=== PATIENT | male | born 1960 | race Caucasian/White ===

== ENCOUNTER 2025-07-08 10:44 | Inpatient (IN) ==
--- NOTE | 2025-07-08 11:53 | Emergency Department Note ---
History of Present Illness General Chief complaint: Unable to Void Stated complaint: NOT GO TO BATHROOM Time Seen by Provider: 07/08/25 11:16 History of Present Illness Patient is a 64-year-old male with past medical history significant for hypertension, and newly diagnosed metastatic cancer of unknown etiology, who presents to the emergency department for evaluation of constipation and decreased urinary output x 3 days. Patient has been following with pulmonology, heme-onc, and palliative medicine. Etiology of the cancer is unclear at this time. He had a liver biopsy on 06/26, with pathology pending. A bone marrow biopsy was inconclusive. He had a port placed recently. He has been dealing with abdominal pain for some time, which has prompted prior ED evaluations. He has been constipated since the bronchoscopy. He was on oxycodone IR 5 mg and was using about 2/day until he saw palliative care 10 days ago. He was switched to Percocet 7.5 mg tablets that he can use 4 times daily. He states he is only using them 2-3 times per day. He has been constipated since being on the narcotics, but was managing with laxatives at home. He states that his constipation got worse after his Thanksgiving dinner 3 days ago. He took Colace when he got home on and a few doses of milk of magnesia, without relief. Today, before coming to the ER, he drank an entire bottle of magnesium citrate, without relief. He reports generalized abdominal pain and bloating, but is not nauseous and he has not been vomiting. He has been eating fairly normally. He has been able to void, but it seems like it has been getting more difficult, he states his stream is decreased, and he does not feel like he is emptying his bladder completely. That has happened in the last couple of days as well. No fever or chills. He is scheduled to see Dr. Hernandez in 2 days. Home Medications Medication Instructions Recorded Confirmed Type aspirin 81 mg tablet,delayed 81 mg PO QAM 04/18/25 07/08/25 History release (Adult Low Dose Aspirin) albuterol sulfate 90 mcg/actuation 2 puff inhalation QID PRN 05/25/25 07/08/25 Rx aerosol inhaler (Ventolin HFA) Shortness Of Breath Or Wheezing #8.5 grams acetaminophen 500 mg tablet 500 mg PO Q6H PRN Pain 06/06/25 07/08/25 History metoprolol succinate 25 mg 25 mg PO QAM 06/06/25 07/08/25 History tablet,extended release 24 hr magnesium hydroxide 800 mg/5 mL 800 mg PO DAILY PRN Constipation 06/20/25 07/08/25 History oral suspension oxycodone-acetaminophen 7.5 mg-325 1 tab PO QID PRN severe cancer 06/28/25 07/08/25 Rx mg tablet (Percocet) pain 1 month #120 tabs Allergies Allergy/AdvReac Type Severity Reaction Status Date / Time No Known Allergies Allergy Mild Verified 06/26/25 08:58 Past Med/Surg History Problem List (Updated 07/08/25 @ 16:35 by George Grubbs) Acute lactic acidosis (Acute) Leukocytosis (Acute) Acute urinary retention (Acute) Constipation (Acute) Advanced care planning/counseling discussion Palliative care by specialist Cancer related pain Abdominal pain Multiple pulmonary nodules Metastases to the liver Abnormal ECG during exercise stress test CHAHAL (dyspnea on exertion) Lymphadenopathy Retroperitoneal lymphadenopathy Weight loss Night sweat Mediastinal adenopathy ESR raised reason for procedure 05/02/[address] lung nodules on CT Medical History Constipation using MOM prn Abdominal pain taking tylenol and oxycodone PRN for pain Mediastinal adenopathy Abnormal ECG during exercise stress test (04/11/25) stress echo at [facility] 04/11/25- seen by [facility] malin (05/18/25)- nuclear stress test ordered for 06/05/25- patient cancelled stress test CHAHAL (dyspnea on exertion) EBUS 05/02/25 - [facility] [place] Pulmonology (05/18/25) Metastases to the liver Exertional chest pain Present since winter -seen in [place] ED 04/11/25- stress ECHO 04/11/25 non diagnostic (MPHR 82%)- ST depressions in inferolateral EKG leads, post exercise ECHO Showed no definite ischemia; troponin negative Lymphadenopathy Left neck LN showing atypical lymphoid infiltrate (worrisome for Hodgkin lymphoma) Cough sometimes productive - EBUS 05/02/25 - [facility] [place] Pulmonology- states was given albuterol for this reason- denies diagnosis of asthma/copd Arthritis Multiple lung nodules on CT (05/02/25) endo brachial ultra sound procedure 05/02/25 - [facility] Pulmonology (unable to get tissue diagnosis with bronchoscopy per pulm records) Surgical History History of lung biopsy (05/02/25) endo brachial US- pt states "they are not sure yet what kind of cancer they found" Hx of removal of cyst (1981) sebaceous cyst removal from leg History of tonsillectomy as a child History of myringotomy as a child History of cervical spinal surgery (2008) Hardware present - slightly limited rom Social History Smoking Status: Never smoker Second Hand Exposure: No; Do You Dip or Chew Tobacco: No (quit chewing 3 years ago); Hx Alcohol Use: No Hx Substance Use: No Preferred Language: Czech Communication Ability: Effective Cardiovascular Operating Room Nurse Required: No Beliefs That Will Affect Care: None Current Living Situation: Alone Feels Safe at Home: Yes Assistive Devices: None Review of Systems A total of 10 systems reviewed and were otherwise negative Physical Exam Vital Signs Vital Signs - 24 hr 07/08/25 10:51 07/08/25 13:30 07/08/25 15:31 Temperature 36.6 C Temperature Source Temporal Artery Scan Pulse Rate 111 H Pulse Rate [Finger] 91 H 88 Respiratory Rate 22 20 20 Respiratory Depth Normal Blood Pressure 131/82 Blood Pressure [Right Arm] 127/80 132/83 Blood Pressure Mean 98 Blood Pressure Mean [Right Arm] 95 99 Pulse Oximetry 97 92 97 Oxygen Delivery Method Room Air Room Air Room Air Sepsis Recent Fever Within 48 Hours No Sepsis New/Unexplained Change in Mental Status No Sepsis Action Taken by Nursing No Action Required CONSTITUTIONAL: Well-appearing 64-year-old male who is awake and alert and laying on the gurney. EYES: Pupils equal, round, reactive to light and accommodation. EOMs intact without nystagmus. Sclera are anicteric. ENT: Tympanic membranes intact, with normal landmarks. External canals are clear. Oral and nasopharynx are clear. Mucous membranes are moist, no lesions, tongue and gums appear normal. CARDIOVASCULAR: Regular rate and rhythm. Peripheral pulses easy to palpable. Well healing port incisions on the right upper chest. RESPIRATORY: Breath sounds equal and clear to auscultation. GI: Bowel sounds are present. Abdomen is moderately distended, soft, nontender to percussion, but diffusely tender to palpation throughout, primarily across the lower abdomen on the left lower quadrant. No guarding or rebound. MUSCULOSKELETAL: Full range of motion of extremities x 4 with good strength. No cyanosis, edema, joint tenderness or swelling. No deformity. INTEGUMENTARY: No lesions or rash, normal skin turgor. NEUROLOGICAL: Alert, oriented, and cooperative. Course Course The patient was seen and assessed as above. External medical records are reviewed, including recent heme-onc and palliative medicine notes. Liver biopsy results: Comment: The biopsy shows a lesion with abundant fibrosis and a notable intermixed inflammatory infiltrate with numerous eosinophils. The morphology is concerning for a T-cell lymphoma though definitive loss or aberrant expression of T-cell markers is not seen. Immunohistochemical studies do not support a diagnosis of Langerhans cell histiocytosis or inflammatory myofibroblastic tumor. This case is being sent out for expert consultation. Additionally T-cell clonality studies have been ordered and are pending. Gross Description LIVER CORE BIOPSY The specimen is received in a container labeled liver core BX with the patient name. The specimen consists of 3 pink and red cylindrical fragments of rubbery tissue. The fragments measure 0.5 and 1.0 cm long and average 0.1 cm in diameter. The specimen is submitted entirely in a single cassette. Touch preparations are performed in this case. 1035 minimal cellularity. 1037 minimal lymphs. Touch preparation diagnosis by Dr. Rush. Microscopic Description FLOW CYTOMETRY RESULTS: No flow immunophenotypic evidence of a lymphoproliferative disorder. Comments: Due to the low cellularity, a limited flow cytometry panel is performed. T-cells (57% of lymphoid cells) show a CD4:CD8 ratio of 2.4 without overt phenotypic abnormality. NK-cells are not identified. Mature B-cells (10% of lymphoid cells) are polyclonal (kappa:lambda ratio of NA). Markers Performed: CD3, CD4, CD5, CD8, CD10, CD19, CD34, CD45, Locust, Lambda (10 Markers ) He presents to the emergency department for evaluation of constipation and difficulty urinating. He has diffuse abdominal tenderness on exam. Bladder scan was performed after the patient tried to void, and noted about 700 cc of urine in the bladder. IV lock was initiated and laboratory studies were collected. Patient attempted to void a few more times in the early ED visit and was unable to and Posadas catheter was placed. Urine was sent for microscopy. Acute abdominal series was obtained. He was treated with a liter bolus of normal saline solution. Case reviewed with attending physician, Dr. Cedillo, who was involved with the patient's ED workup. Diagnostics, as interpreted by me: Laboratory studies: White count elevated at 23,000, neutrophilic predominance noted. H&H 10.6 and 34.7, with a hypochromic, microcytic pattern. Platelet count is 582,000. INR mildly elevated at 1.3. Sodium 133, potassium 3.9, chloride 96,, dioxide 26, BUN 8 and creatinine 0.73. Initial lactate 2.4, repeat 2-hour lactate 2.1. Elevated alk phos 562. Urine microscopy without signs of infection. Cardiac monitoring: An order was placed for continuous cardiac monitoring. The monitor shows a NSR at a rate of 91 per my interpretation. Imaging studies: Acute abdominal series notes air-fluid levels in the large and small bowel loops in the upper abdomen, possible ileus. No overt increased stool burden present. No lung consolidation. CT scan of the abdomen and pelvis notes fluid throughout the large and small bowel. No overt obstruction. No acute appendicitis. No free air. No significant fluid collection. Ileus is suspected. There does appear to be a new metastatic lesion of T12, in the right lower lobe, and possible serosal implants in the bowel loops of the left upper quadrant. Patient given elevated lactate, new leukocytosis, patient was given a a second liter of normal saline solution. Blood cultures were obtained. CT scan abdomen and pelvis with IV contrast was ordered. Antibiotics held upon discussion with Dr. Cedillo, pending additional testing. All laboratory and diagnostic imaging studies were reviewed with Dr. Cedillo. He was given Zosyn IV empirically, while he is well-appearing, he does have a new leukocytosis and a lactic acidosis. He was initially tachycardic, but heart rate has improved in the ED. All laboratory and diagnostic imaging studies were reviewed with the patient. He has had about 1400 cc of urine out the Posadas. He did have another small bowel movement in the ED. He currently has no complaints, denies any abdominal pain, nausea or vomiting. He does feel little bit better now that his bladder is decompressed. Given ED workup, with persistent constipation, which is likely opioid induced, I did recommend further inpatient care, and the patient was agreeable. Patient discussed with the ED continuous pillowcase cutter, and [facility] Chronic conditions affecting care: Metastatic cancer of unclear etiology Differential diagnosis: Constipation, fecal impaction, infectious colitis/enteritis, appendicitis, mesenteric ischemia, pyelonephritis, urinary tract infection, renal colic, urinary retention, diverticulitis, bowel obstruction, hernia, among others. Administered Medications Discontinued Medications Sodium Chloride (Nss) 1,000 mls @ 999 mls/hr IV .Q1H1M ALEENA Stop: 07/08/25 13:05 Last Infusion: 07/08/25 13:16 Dose: Infused Documented By: Admin: 07/08/25 12:09 Dose: 999 mls/hr Documented By: RAUL Sodium Chloride (Nss) 1,000 mls @ 999 mls/hr IV .Q1H1M ALEENA Stop: 07/08/25 16:02 Last Admin: 07/08/25 15:09 Dose: 999 mls/hr Documented By: RAUL Piperacillin Sod/Tazobactam Sod (Zosyn) 4.5 gm in 100 mls @ 200 mls/hr IV NOW ONE; Protocol Stop: 07/08/25 16:02 Last Admin: 07/08/25 15:38 Dose: 200 mls/hr Documented By: RAUL Ioversol (Optiray 320 100ml) 94 ml IV ONCE ONE Stop: 07/08/25 13:09 Last Admin: 07/08/25 13:09 Dose: 94 ml Documented By: TRESSA Medical Decision Making Differential Diagnosis See ED course. Medical Records Attestation: I reviewed the patient's medical records. Home Medications Current Medication List: was personally reviewed by me Laboratory Data Attestation: I reviewed the patient's lab results. 07/08/25 11:52 07/08/25 11:52 Lab Results 07/08/25 07/08/25 07/08/25 Range/Units 11:52 13:26 14:46 WBC 22.79 H (4.8-10.8) K/ul RBC 4.79 (4.70-6.10) M/uL Hgb 10.6 L (14.0-18.0) g/dL Hct 34.7 L (42.0-52.0) % MCV 72.4 L (80.0-100.0) fL MCH 22.1 L (25.0-34.0) pg MCHC 30.5 L (32.0-36.0) g/dL RDW Std Deviation 51.3 H (36.4-46.3) fL RDW Coeff of Anibal 20.1 H (11.5-14.5) % Plt Count 582 H (130-400) K/uL MPV 8.6 L (9.4-12.4) fL Immature Gran % (Auto) 0.7 % Neut % (Auto) 91.6 % Lymph % (Auto) 3.3 % Hooker % (Auto) 4.1 % Eos % (Auto) 0.0 % Baso % (Auto) 0.3 % Neut # (Auto) 20.87 H (1.40-6.50) K/uL Lymph # (Auto) 0.75 L (1.20-3.40) K/uL Hooker # (Auto) 0.93 H (0.11-0.59) K/uL Eos # (Auto) 0.01 (0.00-0.50) K/uL Baso # (Auto) 0.06 (0.00-0.20) K/uL Immature Gran # (Auto) 0.17 (0.01-0.20) K/uL PT 13.2 H (9.0-12.0) Seconds INR 1.3 H (0.9-1.1) APTT 33 H (21-31) Seconds PTT Ratio 1.2 Sodium 133 L (136-145) mmol/L Potassium 3.9 (3.5-5.1) mmol/L Chloride 96 L (98-107) mmol/L Carbon Dioxide 26 (21-32) mmol/L Anion Gap 11 (3-11) BUN 8 (6-23) mg/dl Creatinine 0.73 (0.6-1.4) mg/dl Est Cr Clr Drug Dosing Not Reportable eGFR 102.23 BUN/Creatinine Ratio 11.0 (10-20) Glucose 128 H (70-99(Fasting)) mg/dl Lactate 2.4 H* 2.1 H* (0.4-2.0) mmol/L Calcium 9.5 (8.6-10.3) mg/dl Total Bilirubin 0.7 (0.2-1.0) mg/dl AST 16 (13-39) U/L ALT 12 (7-52) U/L Alkaline Phosphatase 562 H (34-104) U/L Total Protein 7.4 (6.0-8.3) gm/dl Albumin 3.1 L (3.4-5.0) gm/dl Globulin 4.3 H (2.5-4.0) gm/dl Albumin/Globulin Ratio 0.7 L (0.9-2) Lipase 15 (11-82) U/L Urine Color Yellow Urine Appearance Clear (Clear) Urine pH 7.0 (4.5-7.5) Ur Specific [place] 1.008 (1.000-1.030) Urine Protein Negative (Negative) Urine Glucose (UA) Negative (Negative) Urine Ketones 1+ H (Negative) Urine Blood Trace H (Negative) Urine Nitrite Negative (Negative) Urine Bilirubin Negative (Negative) Urine Urobilinogen Negative (Negative) Ur Leukocyte Esterase Negative (Negative) Urine WBC (Auto) 0-5 (0-5) /hpf Urine RBC (Auto) 0-2 (0-2) /hpf U Hyaline Cast (Auto) 0-2 (0-2) /lpf U Epithel Cells (Auto) 0-2 (0-2) /hpf Urine Bacteria (Auto) None Seen (None Seen) Urine Comment Imaging Data Attestation: I personally reviewed and interpreted this imaging study as follows: Radiologist's Impression: Chest/Abdomen X-ray 07/08/25 11:41 EXAM: Radiograph of the Abdomen 2 Views and Radiographs of the Chest 1 View INDICATION: Constipation. Unable to urinate. TECHNIQUE: Frontal view of the chest, frontal view of the abdomen/pelvis and upright or decubitus view of the abdomen. COMPARISON: 05/09/2025 CT FINDINGS: Limitations: None. Lungs and pleural spaces: There is linear atelectasis in the lung bases. No pulmonary edema or pleural effusion. No pneumothorax. Heart: No abnormality noted. Mediastinum: Normal contour. Intraperitoneal space: No free air. Gastrointestinal tract: Air-fluid levels noted in small and large bowel loops particularly in the upper abdomen. Typical amounts of stool present. The amount of stool was decreased compared to the prior CT. Organs: Visualized organ shadows appear grossly normal. Bones/joints: Grossly intact lower anterior cervical fusion hardware. No acute osseous abnormality. Tubes, lines and devices: Right internal jugular central venous port tip distal SVC. IMPRESSION: 1. Ileus. Small amounts of colonic stool. 2. Coarse atelectasis left base. ACT 112: N/A Electronically signed by Catherine Hernandez 07-08-2025 2:35 PM Abdomen/Pelvis CT 07/08/25 12:46 EXAM: CT Abdomen and Pelvis With Intravenous Contrast INDICATION: Abdominal pain and constipation. Metastatic cancer. TECHNIQUE: Axial computed tomography images of the abdomen and pelvis with intravenous contrast. Sagittal and coronal reformatted images were created and reviewed. This CT exam was performed using one or more of the following dose reduction techniques: automated exposure control, adjustment of the mA and/or kV according to patient size, and/or use of iterative reconstruction technique. CONTRAST: 94 ml of Optiray 320 was administered intravenously. COMPARISON: No relevant prior studies available. FINDINGS: Limitations: None. Lung bases: Noncalcified nodules now present in the right lower lobe measuring up to 1.5 cm. Linear atelectasis noted in both lung bases. No basilar pleural effusion. Heart: No abnormality noted. Mediastinum: No abnormality noted. ABDOMEN: Liver: Extensive metastatic lesions throughout the liver grossly unchanged. No ductal dilatation. Gallbladder and bile ducts: No calcified stones or surrounding fluid. No ductal dilation. Pancreas: Homogeneous enhancement. No mass, inflammation or ductal dilation. Spleen: No acute abnormality noted. Adrenals: No acute abnormality noted. Kidneys and ureters: Normal enhancement. No mass, hydronephrosis or visualized stone. Stomach and bowel: There is fluid throughout the small and large bowel. Cannot exclude serosal implant related to bowel loops in the left upper quadrant. PELVIS: Appendix: No findings to suggest acute appendicitis. Bladder: Catheter balloon inflated in the bladder lumen. No stones. Reproductive: No abnormalities noted. ABDOMEN and PELVIS: Intraperitoneal space: No free air. No significant fluid collection. Bones/joints: Stable sclerotic changes in L3 and L4 presumably metastatic. There is a new lytic lesion in the T10 vertebral body with minimal anterior wedging. Soft tissues: There is a left paramedian umbilical hernia with fat. Vasculature: No abdominal aortic aneurysm. Lymph nodes: Stable periportal, anterior cardiophrenic and retroperitoneal adenopathy. IMPRESSION: 1. Ileus. 2. I cannot exclude metastatic serosal implants along bowel loops in the left upper quadrant. 3. New metastatic destructive lesion T10. 4. New metastatic nodules right lower lobe. 5. Stable adenopathy. ACT 112: N/A Electronically signed by Catherine Hernandez 07-08-2025 3:12 PM MDM Narrative See ED course. Impression & Plan Constipation, Acute urinary retention, Leukocytosis, Acute lactic acidosis Discharge Plan Visit Data Chief Complaint: Unable to Void Stated Complaint: NOT GO TO BATHROOM ED Provider: Lorrie Cedillo ED Midlevel Provider: George Grubbs Discharge Problem: Constipation, Acute urinary retention, Leukocytosis, Acute lactic acidosis Patient Disposition: Being Evaluated by Hospitalist Condition: Fair Forms Stand Alone Forms: My [facility] [employer] Prescriptions Prescriptions: No Action albuterol sulfate [Ventolin HFA] 90 mcg/actuation HFA aerosol inhaler 2 puff inhalation QID PRN (Reason: Shortness Of Breath Or Wheezing) Qty: 8.5 4RF oxycodone-acetaminophen [Percocet] 7.5-325 mg tablet 1 tab PO QID PRN (Reason: severe cancer pain) 30 Days Qty: 120 0RF aspirin [Adult Low Dose Aspirin] 81 mg tablet,delayed release (DR/EC) 81 mg PO QAM acetaminophen [Tylenol Ex Str Rapid Release] 500 mg Tablet 500 mg PO Q6H PRN (Reason: Pain) metoprolol succinate 25 mg tablet extended release 24 hr 25 mg PO QAM Milk of Magnesia 800 mg/5 mL Suspension 800 mg PO DAILY PRN (Reason: Constipation) Referrals Referrals: Pamela Griffith DO [Primary Care Provider] -
[2025-07-08] MEDS: SODIUM CHLORIDE 0.9% 1,000 ML IV SCH ×3 (12:09→20:01)
[2025-07-08 12:13] LABS: Hematocrit (blood only) 34.7 % (42.0-52.0); Hemoglobin 10.6 g/dL (14.0-18.0); Mean Corpuscular Hemoglobin 22.1 pg (25.0-34.0); Mean Corpuscular Volume 72.4 fL (80.0-100.0); Platelet Count 582 K/uL (130-400); RDW Standard Deviation 51.3 fL (36.4-46.3); Red Blood Count 4.79 M/uL (4.70-6.10); White Blood Count 22.79 K/ul (4.8-10.8)
[2025-07-08 12:30] LABS: Alanine Aminotransferase 12 U/L (7-52); Albumin Globulin Ratio 0.7 (0.9-2); Albumin Level 3.1 gm/dl (3.4-5.0); Alkaline Phosphatase 562 U/L (34-104); Anion Gap 11 (3-11); Bilirubin,Total 0.7 mg/dl (0.2-1.0); Blood Urea Nitrogen 8 mg/dl (6-23); Calcium 9.5 mg/dl (8.6-10.3); Carbon Dioxide 26 mmol/L (21-32); Chloride 96 mmol/L (98-107); Globulin 4.3 gm/dl (2.5-4.0); Glucose 128 mg/dl (70-99(Fasting)); Lipase 15 U/L (11-82); Potassium 3.9 mmol/L (3.5-5.1); Sodium 133 mmol/L (136-145); Total Protein 7.4 gm/dl (6.0-8.3)
[2025-07-08 12:34] LABS: Immature Granulocytes # (auto) 0.17 K/uL (0.01-0.20); Immature Granulocytes % (auto) 0.7 %
[2025-07-08 12:39] LABS: INR 1.3 (0.9-1.1); Partial Thromboplastin Time 33 Seconds (21-31); Prothrombin Time 13.2 Seconds (9.0-12.0)
[2025-07-08] MEDS: OPTIRAY 320 100ml IV ONE (13:09)
[2025-07-08 13:34] LABS: Appearance Urine Clear (Clear); Bacteria Urine Automated None Seen (None Seen); Cast Urine Automated 0-2 /lpf (0-2); Epithelial Cell Urine Auto 0-2 /hpf (0-2); Glucose Urine UA Negative (Negative); RBC Urine Automated 0-2 /hpf (0-2); WBC Urine Automated 0-5 /hpf (0-5)
--- NOTE | 2025-07-08 14:35 | XRay Report ---
EXAM: Radiograph of the Abdomen 2 Views and Radiographs of the Chest 1 View INDICATION: Constipation. Unable to urinate. TECHNIQUE: Frontal view of the chest, frontal view of the abdomen/pelvis and upright or decubitus view of the abdomen. COMPARISON: 05/09/2025 CT FINDINGS: Limitations: None. Lungs and pleural spaces: There is linear atelectasis in the lung bases. No pulmonary edema or pleural effusion. No pneumothorax. Heart: No abnormality noted. Mediastinum: Normal contour. Intraperitoneal space: No free air. Gastrointestinal tract: Air-fluid levels noted in small and large bowel loops particularly in the upper abdomen. Typical amounts of stool present. The amount of stool was decreased compared to the prior CT. Organs: Visualized organ shadows appear grossly normal. Bones/joints: Grossly intact lower anterior cervical fusion hardware. No acute osseous abnormality. Tubes, lines and devices: Right internal jugular central venous port tip distal SVC. IMPRESSION: 1. Ileus. Small amounts of colonic stool. 2. Coarse atelectasis left base. ACT 112: N/A Electronically signed by Catherine Hernandez 07-08-2025 2:35 PM
--- NOTE | 2025-07-08 15:12 | CT Scan Report ---
EXAM: CT Abdomen and Pelvis With Intravenous Contrast INDICATION: Abdominal pain and constipation. Metastatic cancer. TECHNIQUE: Axial computed tomography images of the abdomen and pelvis with intravenous contrast. Sagittal and coronal reformatted images were created and reviewed. This CT exam was performed using one or more of the following dose reduction techniques: automated exposure control, adjustment of the mA and/or kV according to patient size, and/or use of iterative reconstruction technique. CONTRAST: 94 ml of Optiray 320 was administered intravenously. COMPARISON: No relevant prior studies available. FINDINGS: Limitations: None. Lung bases: Noncalcified nodules now present in the right lower lobe measuring up to 1.5 cm. Linear atelectasis noted in both lung bases. No basilar pleural effusion. Heart: No abnormality noted. Mediastinum: No abnormality noted. ABDOMEN: Liver: Extensive metastatic lesions throughout the liver grossly unchanged. No ductal dilatation. Gallbladder and bile ducts: No calcified stones or surrounding fluid. No ductal dilation. Pancreas: Homogeneous enhancement. No mass, inflammation or ductal dilation. Spleen: No acute abnormality noted. Adrenals: No acute abnormality noted. Kidneys and ureters: Normal enhancement. No mass, hydronephrosis or visualized stone. Stomach and bowel: There is fluid throughout the small and large bowel. Cannot exclude serosal implant related to bowel loops in the left upper quadrant. PELVIS: Appendix: No findings to suggest acute appendicitis. Bladder: Catheter balloon inflated in the bladder lumen. No stones. Reproductive: No abnormalities noted. ABDOMEN and PELVIS: Intraperitoneal space: No free air. No significant fluid collection. Bones/joints: Stable sclerotic changes in L3 and L4 presumably metastatic. There is a new lytic lesion in the T10 vertebral body with minimal anterior wedging. Soft tissues: There is a left paramedian umbilical hernia with fat. Vasculature: No abdominal aortic aneurysm. Lymph nodes: Stable periportal, anterior cardiophrenic and retroperitoneal adenopathy. IMPRESSION: 1. Ileus. 2. I cannot exclude metastatic serosal implants along bowel loops in the left upper quadrant. 3. New metastatic destructive lesion T10. 4. New metastatic nodules right lower lobe. 5. Stable adenopathy. ACT 112: N/A Electronically signed by Catherine Hernandez 07-08-2025 3:12 PM
[2025-07-08] MEDS: PIPERACILLIN/TAZOBACTAM 4.5 GM/100 ML BAG IV ONE (15:38)
--- NOTE | 2025-07-08 18:15 | History & Physical Report ---
Date of Service July 08, 2025 Assessment & Plan (1) Ileus: (2) Constipation: (3) Metastases to the liver: (4) Retroperitoneal lymphadenopathy: (5) Mediastinal adenopathy: (6) Multiple lung nodules on CT: (7) Cancer related pain: (8) Leukocytosis: (9) Acute urinary retention: Plan Mr. Shearer is a 64-year-old male patient with past medical history significant for new metastatic malignancy, questionable carcinoma versus lymphoma, cancer of unknown primary, lymphadenopathy, liver lesions, abnormal PET CT scan, abnormal ECG during exercise stress test, and former tobacco chewer. He presented to [facility] emergency department 07/08 with c/o constipation and urinary retention. In the emergency department CTAP revealed ileus, possible metastatic serosal implants along bowel loops in the LUQ, new metastatic destructive lesion T10, new metastatic nodules right lower lobe. CXR with ileus, small amounts of colonic stool. Labs with WBCs 22.79 and neutrophil predominance, lactate 2.4/2.1, PT 13.2, PTT 33, Na 133, Cr 0.73, Alk phos 562, Procal 0.56, UA with no signs of infectious etiology. Received empiric Zosyn 4.5gm X 1. Posadas placed in ED d/t urinary retention with bladder scan of 670ml. ##Ileus/urinary retention/constipation -NPO, sips with medication -NSS at 100ml/hr -Posadas inserted in ED, keep placed for decompression -scheduled Miralax -Zofran as needed ##Leukocytosis noted transient tachycardia in emergency department with one isolated documented HR at 111, no SIRS/sepsis as he was not hypotensive, febrile or tachypneic -WBCs 22.79 without overt clinical signs of infection -procal 0.56, trend -CRP pending -BC X 2 pending -UA without signs of infection, UC pending -CXR without infection -Lactate 2.4-->2 liters NSS-->2.1, 0.6 -cont empiric Zosyn ##Undetermined malignancy/liver lesions/lymph node involvement/bone involvement PET/CT on 05/16/2025 findings consistent with extensive neoplastic process which favors metastatic disease, liver lesion core biopsy pending expert consultation, CT abdomen pelvis with IV contrast 07/08/2025 with new metastatic destructive lesion at T10, new metastatic nodules right lower lobe, alk phos 562 -pain management with morphine 2 mg IV every 4 hours as needed, oxycodone immediate release 5 mg every 6 hours as needed -consult heme/oncology, patient reports port recently inserted with expectancy of treatment initiation -palliative consult for goals of care concerns Dispo: Full admit to med/surg Diet: NPO DVt Proph: Lovenox 40mg SQ Q24H CODE STATUS: DNR/DNI Patient contact: Close friend, Sky-->Phone number: [phone] History of Present Illness Chief Complaint: Constipation Primary Care Provider: Pamela Griffith DO Mr. Shearer is a 64-year-old male patient with past medical history significant for new metastatic malignancy, questionable carcinoma versus lymphoma, cancer of unknown primary, lymphadenopathy, liver lesions, abnormal PET CT scan, abnormal ECG during exercise stress test, and former tobacco chewer. Presented to the [facility] emergency department today for complaints of constipation and urinary retention. States he started on oral narcotic recently secondary to a new cancer diagnosis and has been having fleeting issues with obstipation. He has been taking laxatives at home but feels his stool is more hard than normal. He has not fully evacuated his bowels since . He is taking Colace at home and milk of magnesia but has not had significant relief. He had to drink an entire bottle of magnesium citrate today and has had no favorble results. He has some vague generalized abdominal pain. He denies nausea, vomiting, fever, chills, dysuria, SOB, chest pain. He presented to the emergency department at [facility] on 04/11/2025 with complaints of exertional dyspnea and chest pain. At that time he had a chest CTA which revealed 3 pulmonary nodules measuring 13 mm, 12 mm and 7 mm respectively with cirrhotic morphology of the liver. He also had a stress test at that time that was nondiagnostic as he did not reach maximal heart rate. He followed up to establish care with a family medicine provider and outpatient cardiology. He was started on a beta amina and aspirin 81mg po daily. He is scheduled to have a [facility] outpatient. In the interim he has had several appointments with pulmonology, hematology/oncology, and palliative medicine. Patient seen by [place] hematology/oncology due to liver lesions, lymphadenopathy, and abnormal PET scan with recommendations for CT- guided liver biopsy, bone marrow biopsy, and port placement with differentials including extensive neoplastic process which favors metastatic disease and possible lymphoma. Liver biopsy complete on 06/26. He denies previous or current tobacco use, former chewing tobacco and no current ETOH use. After discussion with the patient he elects to be a DNR/DNI. Allergies Allergy/AdvReac Type Severity Reaction Status Date / Time No Known Allergies Allergy Mild Verified 06/26/25 08:58 Home Medications Medication Instructions Recorded Confirmed Type aspirin 81 mg tablet,delayed 81 mg PO QAM 04/18/25 07/08/25 History release (Adult Low Dose Aspirin) albuterol sulfate 90 mcg/actuation 2 puff inhalation QID PRN 05/25/25 07/08/25 Rx aerosol inhaler (Ventolin HFA) Shortness Of Breath Or Wheezing #8.5 grams acetaminophen 500 mg tablet 500 mg PO Q6H PRN Pain 06/06/25 07/08/25 History metoprolol succinate 25 mg 25 mg PO QAM 06/06/25 07/08/25 History tablet,extended release 24 hr magnesium hydroxide 800 mg/5 mL 800 mg PO DAILY PRN Constipation 06/20/25 07/08/25 History oral suspension oxycodone-acetaminophen 7.5 mg-325 1 tab PO QID PRN severe cancer 06/28/25 07/08/25 Rx mg tablet (Percocet) pain 1 month #120 tabs Past Med/Surg History Problem List (Updated 07/08/25 @ 19:00 by MICHELLE Mars) Ileus Acute lactic acidosis (Acute) Leukocytosis (Acute) Acute urinary retention (Acute) Constipation (Acute) Advanced care planning/counseling discussion Palliative care by specialist Cancer related pain Abdominal pain Multiple pulmonary nodules Metastases to the liver Abnormal ECG during exercise stress test CHAHAL (dyspnea on exertion) Lymphadenopathy Retroperitoneal lymphadenopathy Weight loss Night sweat Mediastinal adenopathy ESR raised reason for procedure 05/02/[address] lung nodules on CT Medical History Constipation using MOM prn Abdominal pain taking tylenol and oxycodone PRN for pain Mediastinal adenopathy Abnormal ECG during exercise stress test (04/11/25) stress echo at [facility] 04/11/25- seen by [facility]in (05/18/25)- nuclear stress test ordered for 06/05/25- patient cancelled stress test CHAHAL (dyspnea on exertion) EBUS 05/02/25 - [facility] [place] (05/18/25) Metastases to the liver Exertional chest pain Present since winter -seen in [place] ED 04/11/25- stress ECHO 04/11/25 non diagnostic (MPHR 82%)- ST depressions in inferolateral EKG leads, post exercise ECHO Showed no definite ischemia; troponin negative Lymphadenopathy Left neck LN showing atypical lymphoid infiltrate (worrisome for Hodgkin lymphoma) Cough sometimes productive - EBUS 05/02/25 - [facility] [place]- states was given albuterol for this reason- denies diagnosis of asthma/copd Arthritis Multiple lung nodules on CT (05/02/25) endo brachial ultra sound procedure 05/02/25 - [facility] [place] (unable to get tissue diagnosis with bronchoscopy per pulm records) Surgical History History of lung biopsy (05/02/25) endo brachial US- pt states "they are not sure yet what kind of cancer they found" Hx of removal of cyst (1981) sebaceous cyst removal from leg History of tonsillectomy as a child History of myringotomy as a child History of cervical spinal surgery (2008) Hardware present - slightly limited rom Social History Smoking Status: Never smoker Tobacco Type: Smokeless Tobacco (Dip or Chew) Second Hand Exposure: No; Do You Dip or Chew Tobacco: No; Hx Alcohol Use: No Hx Substance Use: No Preferred Language: Guamanian Communication Ability: Effective Bottling Attendant Required: No Beliefs That Will Affect Care: None Current Living Situation: Alone Current Living Situation Comment: Live alone in an apartment but has a good support sytem Feels Safe at Home: Yes Safety Concerns: Feels Safe At This Time Assistive Devices: None Review of Systems Review of Systems: All systems reviewed & are unremarkable except as noted in Subjective Physical Exam Physical Exam: GENERAL APPEARANCE: A&O. Lying in bed. SKIN: Normal color without rashes or lesions. Normal turgor. HEENT: Head AT/NC. Buccal mucosa is moist and pink. NECK: No jugular venous distention. No thyroid enlargement. HEART: RRR without m/g/r. LUNGS: Normal inspiratory effort. CTA without w/r/r. ABDOMEN: No guarding or rigidity. Hypoactive BS. Abdomen minimally distended. Mild diffuse tenderness with palpation. MSK: No bony gross/deformities throughout. ROM intact. EXTREMITIES: No edema, No peripheral cyanosis. Neuro: CN 2-12 grossly intact. No focal neuro deficits PSYCHIATRIC: Normal affect. Tearful at times in conversation. Results & Data Results & Data Vital Signs (Past 12 Hours) Vital Signs Temp Pulse Pulse Resp BP BP Pulse Ox 07/08/25 18:03 83 18 115/72 95 07/08/25 15:31 88 20 132/83 97 07/08/25 13:30 91 H 20 127/80 92 07/08/25 10:51 36.6 C 111 H 22 131/82 97 O2 Del Method 07/08/25 18:03 Room Air 07/08/25 15:31 Room Air 07/08/25 13:30 Room Air 07/08/25 10:51 Room Air Laboratory Results Labs reviewed: CBC, CMP, procal, UA Code Status & VTE Plan VTE Prophylaxis Plan VTE Prophylaxis will be ordered: Yes PG Care Time/CCT Total # of Minutes Spent Total Time Spent with Patient: Total time spent is greater than 50% in coordination of care (as documented) at patient's floor/unit and/or counseling patient: Coding Level of Care Code 18337 INT INP/OBS CARE 3/75MIN Diagnoses Ileus K56.7 Constipation K59.00 Metastases to the liver C78.7 Retroperitoneal lymphadenopathy R59.0 Mediastinal adenopathy R59.[address] nodules [address] R91.8 Cancer related pain G89.3 Leukocytosis D72.829 Acute urinary retention R33.8
[2025-07-08] MEDS ORDERED: ALUMINUM/MAGNESIUM SUSP 30 ML UDC PO PRN (18:30)
[2025-07-08] MEDS ORDERED: ONDANSETRON INJ 2 MG/ML 2 ML VIAL IV PRN (18:30)
[2025-07-08] MEDS ORDERED: MELATONIN 3 MG TAB PO PRN (18:30)
[2025-07-08] MEDS ORDERED: Patient's HEIGHT &/or WEIGHT Needed STA (18:36)
[2025-07-08] MEDS: ACETAMINOPHEN 325 MG TAB PO PRN (19:17)
[2025-07-08] MEDS ORDERED: NALOXONE HCL 0.4 MG/1 ML VIAL/CARP IV PRN (19:39)
[2025-07-08] MEDS: ENOXAPARIN INJ 40 MG/0.4 ML SYR SQ SCH (20:03)
[2025-07-08] MEDS: PIPERACILLIN/TAZOBACTAM 4.5 GM/100 ML BAG IV SCH (20:14)
[2025-07-08] MEDS: POLYETHYLENE (MIRALAX) 17 GM PACK PO SCH (20:23)
[2025-07-08] MEDS: MoRPHine SULFATE 2 MG/ML CARP IV PRN (22:42)
[2025-07-09] MEDS: KETOROLAC 30 MG/ML VIAL IV ONE (05:12)
[2025-07-09 06:26] LABS: Hematocrit (blood only) 28.0 % (42.0-52.0); Hemoglobin 8.7 g/dL (14.0-18.0); Immature Granulocytes # (auto) 0.10 K/uL (0.01-0.20); Immature Granulocytes % (auto) 0.6 %; Mean Corpuscular Hemoglobin 22.5 pg (25.0-34.0); Mean Corpuscular Volume 72.5 fL (80.0-100.0); Platelet Count 480 K/uL (130-400); RDW Standard Deviation 52.8 fL (36.4-46.3); Red Blood Count 3.86 M/uL (4.70-6.10); White Blood Count 16.80 K/ul (4.8-10.8)
[2025-07-09 06:52] LABS: Anion Gap 9.0 (3-11); Blood Urea Nitrogen 6.0 mg/dl (6-23); Calcium 8.5 mg/dl (8.6-10.3); Carbon Dioxide 25.0 mmol/L (21-32); Chloride 107.0 mmol/L (98-107); Creatinine Clr Calc Pharmacy 130.6 ml/min; Glucose 95.0 mg/dl (70-99(Fasting)); Magnesium 2.2 mg/dl (1.7-2.4); Potassium 3.5 mmol/L (3.5-5.1); Sodium 141.0 mmol/L (136-145)
[2025-07-09 06:59] LABS: Anisocytosis Present; Polychromasia 1+
[2025-07-09 07:50] LABS: Toxic Granulation 1+
[2025-07-09] MEDS: METOPROLOL SUCC 25MG EXT REL TAB PO SCH (08:55)
--- NOTE | 2025-07-09 11:06 | Palliative Care Consultation ---
Date of Consultation July 09, 2025 Assessment & Plan (1) Constipation: Discussed and reinforced prior discussions of need for aggressive prophylactic bowel regime while taking opiate medications. Pt verbalized understanding of need for stool softener and MOM for prevention/treatment of constipation as long as he is taking opiates. (2) Palliative care by specialist: Met with patient and his friend Sky at bedside. Pt is known to Palliative Care team through outpt clinic and will continue to follow with Dr Rubi on discharge. (3) Cancer related pain: Pt states pain has been well managed with current regime of oxyIR 7.5mg q4h PRN. He shared fear that he was taking too much and caused constipation,reinforced OIC preventative teaching as above. Pt states he was taking oxy only 2 or 3 times per day and this was controlling his pain well. No recommended changes in pain mgmt regime today. (4) Abdominal pain: History of Present Illness Reason for Consultation: goals of care Requesting Physician: Calos Salas Attending Physician: Calos Salas History of Present Illness Mr. Shearer is a 64-year-old male patient with past medical history significant for new metastatic malignancy, questionable carcinoma versus lymphoma, cancer of unknown primary, lymphadenopathy, liver lesions, abnormal PET CT scan, abnormal ECG during exercise stress test, and former tobacco chewer. He presented to [facility] emergency department 07/08 with c/o constipation and urinary retention. In the emergency department CTAP revealed ileus, possible metastatic serosal implants along bowel loops in the LUQ, new metastatic destructive lesion T10, new metastatic nodules right lower lobe. CXR with ileus, small amounts of colonic stool. Labs with WBCs 22.79 and neutrophil predominance, lactate 2.4/2.1, PT 13.2, PTT 33, Na 133, Cr 0.73, Alk phos 562, Procal 0.56, UA with no signs of infectious etiology. Allergies Allergy/AdvReac Type Severity Reaction Status Date / Time No Known Allergies Allergy Mild Verified 06/26/25 08:58 Home Medications Medication Instructions Recorded Confirmed Type aspirin 81 mg tablet,delayed 81 mg PO QAM 04/18/25 07/08/25 History release (Adult Low Dose Aspirin) albuterol sulfate 90 mcg/actuation 2 puff inhalation QID PRN 05/25/25 07/08/25 Rx aerosol inhaler (Ventolin HFA) Shortness Of Breath Or Wheezing #8.5 grams acetaminophen 500 mg tablet 500 mg PO Q6H PRN Pain 06/06/25 07/08/25 History metoprolol succinate 25 mg 25 mg PO QAM 06/06/25 07/08/25 History tablet,extended release 24 hr magnesium hydroxide 800 mg/5 mL 800 mg PO DAILY PRN Constipation 06/20/25 07/08/25 History oral suspension oxycodone-acetaminophen 7.5 mg-325 1 tab PO QID PRN severe cancer 06/28/25 07/08/25 Rx mg tablet (Percocet) pain 1 month #120 tabs Patient History Medical History Constipation using MOM prn Abdominal pain taking tylenol and oxycodone PRN for pain Mediastinal adenopathy Abnormal ECG during exercise stress test (04/11/25) stress echo at [facility] 04/11/25- seen by sapphire malin (05/18/25)- nuclear stress test ordered for 06/05/25- patient cancelled stress test CHAHAL (dyspnea on exertion) EBUS 05/02/25 - [facility] [place] Pulmonology (05/18/25) Metastases to the liver Exertional chest pain Present since winter -seen in [place] ED 04/11/25- stress ECHO 04/11/25 non diagnostic (MPHR 82%)- ST depressions in inferolateral EKG leads, post exercise ECHO Showed no definite ischemia; troponin negative Lymphadenopathy Left neck LN showing atypical lymphoid infiltrate (worrisome for Hodgkin lymphoma) Cough sometimes productive - EBUS 05/02/25 - [facility] [place] Pulmonology- states was given albuterol for this reason- denies diagnosis of asthma/copd Arthritis Multiple lung nodules on CT (05/02/25) endo brachial ultra sound procedure 05/02/25 - [facility] [place] Pulmonology (unable to get tissue diagnosis with bronchoscopy per pulm records) Surgical History History of lung biopsy (05/02/25) endo brachial US- pt states "they are not sure yet what kind of cancer they found" Hx of removal of cyst (1981) sebaceous cyst removal from leg History of tonsillectomy as a child History of myringotomy as a child History of cervical spinal surgery (2009) Hardware present - slightly limited rom Social History Smoking Status: Never smoker Tobacco Type: Smokeless Tobacco (Dip or Chew) Second Hand Exposure: No; Do You Dip or Chew Tobacco: No; Hx Alcohol Use: No Hx Substance Use: No Preferred Language: [place] Communication Ability: Effective Welder Journeyman Required: No Beliefs That Will Affect Care: None Current Living Situation: Alone Current Living Situation Comment: Live alone in an apartment but has a good support sytem Feels Safe at Home: Yes Safety Concerns: Feels Safe At This Time Assistive Devices: None Review of Systems Review of Systems: All systems reviewed & are unremarkable except as noted in HPI & below Physical Exam Constitutional: WD/WN, vitals as above Eyes: PERRL, conjunctivae normal, anicteric sclerae ENMT: external ear and nose normal, oropharynx normal Neck: trachea midline, no thyromegaly Respiratory: normal respiratory effort, lungs clear to auscultation Cardiovascular: RRR, no murmur, no edema Gastrointestinal (Abdomen): Inspection/Auscultation: + abdomen distended and + hyperactive bowel sounds Percussion/Palpation: + abdomen tender and abdomen soft Musculoskeletal: no cyanosis or clubbing, extremities motor strength 5/5 Skin: no rashes, warm and dry Neurologic: PERRL, EOMI, accommodation nl, no face palsy, no dysarthria Psychiatric: A+Ox3, euthymic affect Results & Data Vital Signs (Past 12 Hours) Vital Signs Temp Pulse Resp BP Pulse Ox O2 Del Method 07/09/25 07:33 36.8 C 74 16 101/63 95 Room Air Laboratory Results Abnormal lab results 07/08/25 07/08/25 07/08/25 Range/Units 11:52 13:26 14:46 WBC 22.79 H (4.8-10.8) K/ul RBC (4.70-6.10) M/uL Hgb 10.6 L (14.0-18.0) g/dL Hct 34.7 L (42.0-52.0) % MCV 72.4 L (80.0-100.0) fL MCH 22.1 L (25.0-34.0) pg MCHC 30.5 L (32.0-36.0) g/dL RDW Std Deviation 51.3 H (36.4-46.3) fL RDW Coeff of Anibal 20.1 H (11.5-14.5) % Plt Count 582 H (130-400) K/uL MPV 8.6 L (9.4-12.4) fL Neut # (Auto) 20.87 H (1.40-6.50) K/uL Lymph # (Auto) 0.75 L (1.20-3.40) K/uL Panola # (Auto) 0.93 H (0.11-0.59) K/uL PT 13.2 H (9.0-12.0) Seconds INR 1.3 H (0.9-1.1) APTT 33 H (21-31) Seconds Sodium 133 L (136-145) mmol/L Chloride 96 L (98-107) mmol/L BUN/Creatinine Ratio (10-20) Glucose 128 H (70-99(Fasting)) mg/dl Lactate 2.4 H* 2.1 H* (0.4-2.0) mmol/L Calcium (8.6-10.3) mg/dl Alkaline Phosphatase 562 H (34-104) U/L C-Reactive Protein 21.96 H (0-0.5) mg/dl Albumin 3.1 L (3.4-5.0) gm/dl Globulin 4.3 H (2.5-4.0) gm/dl Albumin/Globulin Ratio 0.7 L (0.9-2) Procalcitonin 0.56 H (0-0.5) ng/ml Urine Ketones 1+ H (Negative) Urine Blood Trace H (Negative) 07/09/25 Range/Units 05:50 WBC 16.80 H (4.8-10.8) K/ul RBC 3.86 L (4.70-6.10) M/uL Hgb 8.7 L (14.0-18.0) g/dL Hct 28.0 L (42.0-52.0) % MCV 72.5 L (80.0-100.0) fL MCH 22.5 L (25.0-34.0) pg MCHC 31.1 L (32.0-36.0) g/dL RDW Std Deviation 52.8 H (36.4-46.3) fL RDW Coeff of Anibal 20.3 H (11.5-14.5) % Plt Count 480 H (130-400) K/uL MPV 8.8 L (9.4-12.4) fL Neut # (Auto) 15.02 H (1.40-6.50) K/uL Lymph # (Auto) 0.60 L (1.20-3.40) K/uL [place] # (Auto) 0.91 H (0.11-0.59) K/uL PT (9.0-12.0) Seconds INR (0.9-1.1) APTT (21-31) Seconds Sodium (136-145) mmol/L Chloride (98-107) mmol/L BUN/Creatinine Ratio 9.7 L (10-20) Glucose (70-99(Fasting)) mg/dl Lactate (0.4-2.0) mmol/L Calcium 8.5 L (8.6-10.3) mg/dl Alkaline Phosphatase (34-104) U/L C-Reactive Protein (0-0.5) mg/dl Albumin (3.4-5.0) gm/dl Globulin (2.5-4.0) gm/dl Albumin/Globulin Ratio (0.9-2) Procalcitonin (0-0.5) ng/ml Urine Ketones (Negative) Urine Blood (Negative) Diagnostic Findings Chest/Abdomen X-ray 07/08/25 11:41 EXAM: Radiograph of the Abdomen 2 Views and Radiographs of the Chest 1 View INDICATION: Constipation. Unable to urinate. TECHNIQUE: Frontal view of the chest, frontal view of the abdomen/pelvis and upright or decubitus view of the abdomen. COMPARISON: 05/09/2025 CT FINDINGS: Limitations: None. Lungs and pleural spaces: There is linear atelectasis in the lung bases. No pulmonary edema or pleural effusion. No pneumothorax. Heart: No abnormality noted. Mediastinum: Normal contour. Intraperitoneal space: No free air. Gastrointestinal tract: Air-fluid levels noted in small and large bowel loops particularly in the upper abdomen. Typical amounts of stool present. The amount of stool was decreased compared to the prior CT. Organs: Visualized organ shadows appear grossly normal. Bones/joints: Grossly intact lower anterior cervical fusion hardware. No acute osseous abnormality. Tubes, lines and devices: Right internal jugular central venous port tip distal SVC. IMPRESSION: 1. Ileus. Small amounts of colonic stool. 2. Coarse atelectasis left base. ACT 112: N/A Electronically signed by Catherine Hernandez 07-08-2025 2:35 PM Abdomen/Pelvis CT 07/08/25 12:46 EXAM: CT Abdomen and Pelvis With Intravenous Contrast INDICATION: Abdominal pain and constipation. Metastatic cancer. TECHNIQUE: Axial computed tomography images of the abdomen and pelvis with intravenous contrast. Sagittal and coronal reformatted images were created and reviewed. This CT exam was performed using one or more of the following dose reduction techniques: automated exposure control, adjustment of the mA and/or kV according to patient size, and/or use of iterative reconstruction technique. CONTRAST: 94 ml of Optiray 320 was administered intravenously. COMPARISON: No relevant prior studies available. FINDINGS: Limitations: None. Lung bases: Noncalcified nodules now present in the right lower lobe measuring up to 1.5 cm. Linear atelectasis noted in both lung bases. No basilar pleural effusion. Heart: No abnormality noted. Mediastinum: No abnormality noted. ABDOMEN: Liver: Extensive metastatic lesions throughout the liver grossly unchanged. No ductal dilatation. Gallbladder and bile ducts: No calcified stones or surrounding fluid. No ductal dilation. Pancreas: Homogeneous enhancement. No mass, inflammation or ductal dilation. Spleen: No acute abnormality noted. Adrenals: No acute abnormality noted. Kidneys and ureters: Normal enhancement. No mass, hydronephrosis or visualized stone. Stomach and bowel: There is fluid throughout the small and large bowel. Cannot exclude serosal implant related to bowel loops in the left upper quadrant. PELVIS: Appendix: No findings to suggest acute appendicitis. Bladder: Catheter balloon inflated in the bladder lumen. No stones. Reproductive: No abnormalities noted. ABDOMEN and PELVIS: Intraperitoneal space: No free air. No significant fluid collection. Bones/joints: Stable sclerotic changes in L3 and L4 presumably metastatic. There is a new lytic lesion in the T10 vertebral body with minimal anterior wedging. Soft tissues: There is a left paramedian umbilical hernia with fat. Vasculature: No abdominal aortic aneurysm. Lymph nodes: Stable periportal, anterior cardiophrenic and retroperitoneal adenopathy. IMPRESSION: 1. Ileus. 2. I cannot exclude metastatic serosal implants along bowel loops in the left upper quadrant. 3. New metastatic destructive lesion T10. 4. New metastatic nodules right lower lobe. 5. Stable adenopathy. ACT 112: N/A Electronically signed by Catherine Hernandez 07-08-2025 3:12 PM Medications Administered Current Inpatient Medications Acetaminophen (Acetaminophen 325 Mg Tab) 650 mg PO Q4H PRN PRN Reason: pain/fever Stop: 08/07/25 18:29 Last Admin: 07/09/25 16:18 Dose: 650 mg Al Hydrox/Mg Hydrox/Simethicone (Aluminum/Magnesium Susp 30 Ml Udc) 30 ml PO Q6H PRN PRN Reason: Dyspepsia Stop: 08/07/25 18:29 Enoxaparin Sodium (Enoxaparin Inj 40 Mg/0.4 Ml Syr) 40 mg SQ Q24H ALEENA Stop: 08/07/25 19:59 Last Admin: 07/08/25 20:03 Dose: 40 mg Sodium Chloride (Nss) 1,000 mls @ 60 mls/hr IV .[id number] [facility] Stop: 07/11/25 18:29 Last Admin: 07/09/25 12:07 Dose: 125 mls/hr Piperacillin Sod/Tazobactam Sod (Zosyn) 4.5 gm in 100 mls @ 25 mls/hr IV Q8H [facility]; Protocol Stop: 07/10/25 20:59 Last Infusion: 07/09/25 16:18 Dose: Infused Magnesium Hydroxide (Magnesium Hydroxide Susp 30 Ml Udc) 30 ml PO Q6H PRN PRN Reason: Constipation Stop: 08/07/25 18:29 Last Admin: 07/09/25 16:18 Dose: 30 ml Melatonin (Melatonin 3 Mg Tab) 3 mg PO HS PRN PRN Reason: Insomnia Stop: 08/07/25 18:29 Metoprolol Succinate (Metoprolol Succ 25mg Ext Rel Tab) 25 mg PO QAM [facility] Stop: 08/08/25 08:59 Last Admin: 07/09/25 08:55 Dose: 25 mg Morphine Sulfate (Morphine Sulfate 2 Mg/Ml Carp) 2 mg IV Q4H PRN PRN Reason: Pain Stop: 07/22/25 19:38 Last Admin: 07/09/25 04:04 Dose: 2 mg Naloxone HCl (Naloxone Hcl 0.4 Mg/1 Ml Vial/Carp) 0.4 mg IV Q5M PRN PRN Reason: Narcosis Stop: 08/07/25 19:38 Ondansetron HCl (Ondansetron Inj 2 Mg/Ml 2 Ml Vial) 4 mg IV Q6H PRN PRN Reason: Nausea Stop: 08/07/25 18:29 Oxycodone HCl (Oxycodone Hcl Ir 5 Mg Tab (Immediate Release)) 7.5 mg PO Q6H PRN PRN Reason: Pain Stop: 07/22/25 19:44 Polyethylene Glycol (Polyethylene (Miralax) 17 Gm Pack) 17 gm PO BID ALEENA Stop: 08/08/25 20:59 PG Care Time/CCT Total # of Minutes Spent Total Time Spent with Patient: Total time spent is greater than 50% in coordination of care (as documented) at patient's floor/unit and/or counseling patient: [place] [address] IN/OBS CONSULT LVL 4,60M Patient Type New History Expanded Problem Focused Exam Expanded Problem Focused Medical Decision Making Moderate Complexity Diagnoses Constipation K59.00 Palliative care by specialist Z51.5 Cancer related pain G89.3 Abdominal pain R10.9
[2025-07-09] MEDS: MAGNESIUM HYDROXIDE SUSP 30 ML UDC PO PRN (16:18)
--- NOTE | 2025-07-09 16:51 | Oncology Consultation ---
Date of Consultation July 09, 2025 Assessment & Plan (1) Retroperitoneal lymphadenopathy: official biopsy reports are still pending. In the absence of a biopsy to her diagnosis there could be no oncological plan. Plan Medical oncology will continue to follow the patient make appropriate recommendations. History of Present Illness Reason for Consultation: ? T cell lymphoma ? Langerhans Cell Histiocytosis Attending Physician: Calos Salas History of Present Illness PET CT scan; 05/17/2025: IMPRESSION: 1. Findings consistent with an extensive neoplastic process which favors metastatic disease although lymphoma is within the differential. FDG avid left cervical, mediastinal, right hilar and abdominal lymphadenopathy, as described above. The left cervical lymphadenopathy would be amenable to ultrasound-guided biopsy. 2. Innumerable FDG avid lesions within the liver which favor metastatic disease. Cirrhotic appearing liver. 3. Two FDG avid right lower lobe pulmonary lesions which are likely neoplastic. 4. Near diffuse moderate skeletal FDG uptake with corresponding sclerosis associated with several of these lesions. This suggests diffuse skeletal involvement by metastatic disease or lymphoma. Bronchoscopy; 05/02/2025: COMPLICATIONS: None. INDICATION: New mediastinal/hilar adenopathy, weight loss and night sweats, lung nodules PROCEDURE: After obtaining an informed consent, the patient was brought to the Bronchoscopy Suite. Anesthesia: Anesthesia was with general anesthesia, LMA was used, anesthesiology was present. Pathology; 05/02/2025: FINAL DIAGNOSIS Bronchial washing, right lower lobe: - Scattered macrophages, benign bronchial cells and neutrophils FINAL DIAGNOSIS Lymph node, right paratracheal, endobronchial ultrasound fine needle aspiration: - Blood and rare bronchial epithelium - Specimen not consistent with a lymph node sample FINAL DIAGNOSIS Lymph node, 11R, endobronchial ultrasound fine needle aspiration: - Negative for malignancy FINAL DIAGNOSIS Lymph node, station 7, endobronchial ultrasound fine needle aspiration: - Negative for malignancy Lymph node biopsy; 05/21/2025: FINAL DIAGNOSIS Lymph node, left neck, ultrasound-guided aspiration: - Atypical cells present. - Correlation with concurrent core biopsy specimen is recommended. - See comment FINAL DIAGNOSIS Lymph node, left neck, ultrasound-guided core biopsy: - Atypical lymphoid infiltrate. - Lymph node excision is recommended. - See comment. Comment: The core biopsy shows some features that are worrisome for Hodgkin lymphoma however diagnostic neoplastic cells of Hodgkin's are not identified. Other disease processes are not excluded. Flow cytometry performed on the lymph node aspirate specimen is unremarkable liver biopsy, 06/26/2025: Preliminary Diagnosis Liver, lesion, core biopsy: - Pending expert consultation Comment: The biopsy shows a lesion with abundant fibrosis and a notable intermixed inflammatory infiltrate with numerous eosinophils. The morphology is concerning for a T-cell lymphoma though definitive loss or aberrant expression of T-cell markers is not seen. Immunohistochemical studies do not support a diagnosis of Langerhans cell histiocytosis or inflammatory myofibroblastic tumor. This case is being sent out for expert consultation. Additionally T-cell clonality studies have been ordered and are pending. Gross Description LIVER CORE BIOPSY The specimen is received in a container labeled liver core BX with the patient name. The specimen consists of 3 pink and red cylindrical fragments of rubbery tissue. The fragments measure 0.5 and 1.0 cm long and average 0.1 cm in diameter. The specimen is submitted entirely in a single cassette. Touch preparations are performed in this case. 1035 minimal cellularity. 1037 minimal lymphs. Touch preparation diagnosis by Dr. Rush. Microscopic Description FLOW CYTOMETRY RESULTS: No flow immunophenotypic evidence of a lymphoproliferative disorder. Comments: Due to the low cellularity, a limited flow cytometry panel is performed. T-cells (57% of lymphoid cells) show a CD4:CD8 ratio of 2.4 without overt phenotypic abnormality. NK-cells are not identified. Mature B-cells (10% of lymphoid cells) are polyclonal (kappa:lambda ratio of NA). bone marrow biopsy, 06/12/2025: FINAL DIAGNOSIS Peripheral blood, bone marrow aspiration, core biopsy and clot section: - Severely fibrotic marrow space (see comment) Comment: Approximately 80% of all the marrow space on the biopsy is composed of dense fibrosis with embedded inflammatory cells and pigmented histiocytes. This area is consistent with the "lesion" seen radiographically as multiple marrow fragments from the clot section show unremarkable trilineage hematopoiesis. Unfortunately, the cause of the fibrosis appears to not be present within the fibrotic areas (staining is unremarkable) and sampling may be an issue. Additional tissue from a separate site is recommended for diagnosis. at 1040 Allergies Allergy/AdvReac Type Severity Reaction Status Date / Time No Known Allergies Allergy Mild Verified 06/26/25 08:58 Home Medications Medication Instructions Recorded Confirmed Type aspirin 81 mg tablet,delayed 81 mg PO QAM 04/18/25 07/08/25 History release (Adult Low Dose Aspirin) albuterol sulfate 90 mcg/actuation 2 puff inhalation QID PRN 05/25/25 07/08/25 Rx aerosol inhaler (Ventolin HFA) Shortness Of Breath Or Wheezing #8.5 grams acetaminophen 500 mg tablet 500 mg PO Q6H PRN Pain 06/06/25 07/08/25 History metoprolol succinate 25 mg 25 mg PO QAM 06/06/25 07/08/25 History tablet,extended release 24 hr magnesium hydroxide 800 mg/5 mL 800 mg PO DAILY PRN Constipation 06/20/25 07/08/25 History oral suspension oxycodone-acetaminophen 7.5 mg-325 1 tab PO QID PRN severe cancer 06/28/25 07/08/25 Rx mg tablet (Percocet) pain 1 month #120 tabs Patient History Medical History Constipation using MOM prn Abdominal pain taking tylenol and oxycodone PRN for pain Mediastinal adenopathy Abnormal ECG during exercise stress test (04/11/25) stress echo at [facility] 04/11/25- seen by sapphire malin (05/18/25)- nuclear stress test ordered for 06/05/25- patient cancelled stress test CHAHAL (dyspnea on exertion) EBUS 05/02/25 - [facility] (05/18/25) Metastases to the liver Exertional chest pain Present since winter -seen in [place] ED 04/11/25- stress ECHO 04/11/25 non diagnostic (MPHR 82%)- ST depressions in inferolateral EKG leads, post exercise ECHO Showed no definite ischemia; troponin negative Lymphadenopathy Left neck LN showing atypical lymphoid infiltrate (worrisome for Hodgkin lymphoma) Cough sometimes productive - EBUS 05/02/25 - [facility] [place] [facility]- states was given albuterol for this reason- denies diagnosis of asthma/copd Arthritis Multiple lung nodules on CT (05/02/25) endo brachial ultra sound procedure 05/02/25 - [facility] [place] Pulmonology (unable to get tissue diagnosis with bronchoscopy per pulm records) Surgical History History of lung biopsy (05/02/25) endo brachial US- pt states "they are not sure yet what kind of cancer they found" Hx of removal of cyst (1981) sebaceous cyst removal from leg History of tonsillectomy as a child History of myringotomy as a child History of cervical spinal surgery (2008) Hardware present - slightly limited rom Social History Smoking Status: Never smoker Tobacco Type: Smokeless Tobacco (Dip or Chew) Second Hand Exposure: No; Do You Dip or Chew Tobacco: No; Hx Alcohol Use: No Hx Substance Use: No Preferred Language: [place] Communication Ability: Effective Ammonia Box Tender Required: No Beliefs That Will Affect Care: None Current Living Situation: Alone Current Living Situation Comment: Live alone in an apartment but has a good support sytem Feels Safe at Home: Yes Safety Concerns: Feels Safe At This Time Assistive Devices: None Review of Systems Review of Systems: All systems reviewed & are unremarkable except as noted in HPI & below Constitutional: as per Subjective / HPI Eyes: as per Subjective / HPI Ear, Nose, Mouth, Throat: as per Subjective / HPI Respiratory: as per Subjective / HPI Cardiovascular: as per Subjective / HPI Gastrointestinal: as per Subjective / HPI Genitourinary: + as per Subjective / HPI Musculoskeletal: as per Subjective / HPI Integumentary: as per Subjective / HPI Neurologic: as per Subjective / HPI Psychiatric: as per Subjective / HPI Endocrine: as per Subjective / HPI Physical Exam Constitutional: WD/WN, vitals as above Eyes: PERRL, conjunctivae normal, anicteric sclerae ENMT: external ear and nose normal, oropharynx normal Neck: trachea midline, no thyromegaly Respiratory: normal respiratory effort, lungs clear to auscultation Cardiovascular: RRR, no murmur, no edema Gastrointestinal (Abdomen): normal bowel sounds, soft, nontender, no hepatosplenomegaly Musculoskeletal: no cyanosis or clubbing, extremities motor strength 5/5 Skin: no rashes, warm and dry Neurologic: patellar DTR's 2+ bilat, sensation intact Psychiatric: A+Ox3, euthymic affect Results & Data Vital Signs (Past 12 Hours) Vital Signs Temp Pulse Resp BP Pulse Ox O2 Del Method 07/09/25 14:59 36.4 C L 64 17 120/68 97 Room Air 07/09/25 07:33 36.8 C 74 16 101/63 95 Room Air
[2025-07-09] MEDS: POLYETHYLENE (MIRALAX) 17 GM PACK PO SCH (20:14)
--- NOTE | 2025-07-09 23:34 | Hospitalist Progress Note ---
Date of Service July 09, 2025 Assessment & Plan (1) Ileus: (2) Constipation: (3) Metastases to the liver: (4) Retroperitoneal lymphadenopathy: (5) Mediastinal adenopathy: (6) Multiple lung nodules on CT: (7) Cancer related pain: (8) Leukocytosis: (9) Acute urinary retention: Plan Mr. Shearer is a 64-year-old male patient with past medical history significant for new metastatic malignancy, questionable carcinoma versus lymphoma, cancer of unknown primary, lymphadenopathy, liver lesions, abnormal PET CT scan, abnormal ECG during exercise stress test, and former tobacco chewer. He presented to [facility] emergency department 07/08 with c/o constipation and urinary retention. In the emergency department CTAP revealed ileus, possible metastatic serosal implants along bowel loops in the LUQ, new metastatic destructive lesion T10, new metastatic nodules right lower lobe. CXR with ileus, small amounts of colonic stool. Labs with WBCs 22.79 and neutrophil predominance, lactate 2.4/2.1, PT 13.2, PTT 33, Na 133, Cr 0.73, Alk phos 562, Procal 0.56, UA with no signs of infectious etiology. Received empiric Zosyn 4.5gm X 1. Posadas placed in ED d/t urinary retention with bladder scan of 670ml. ##Ileus/urinary retention/constipation -NPO, sips with medication -NSS at 100ml/hr -Posadas inserted in ED, keep placed for decompression -scheduled Miralax will transition to BID -Zofran as needed ##Leukocytosis noted transient tachycardia in emergency department with one isolated documented HR at 111, no SIRS/sepsis as he was not hypotensive, febrile or tachypneic -WBCs 22.79 without overt clinical signs of infection -procal 0.56, trend -CRP elevaed continues to have zosyn. -BC X 2 pending -UA without signs of infection, UC pending -CXR without infection -Lactate 2.4-->2 liters NSS-->2.1, 0.6 -cont empiric Zosyn ##Undetermined malignancy/liver lesions/lymph node involvement/bone involvement PET/CT on 05/16/2025 findings consistent with extensive neoplastic process which favors metastatic disease, liver lesion core biopsy pending expert consultation, CT abdomen pelvis with IV contrast 07/08/2025 with new metastatic destructive lesion at T10, new metastatic nodules right lower lobe, alk phos 562 -pain management with morphine 2 mg IV every 4 hours as needed, oxycodone immediate release 5 mg every 6 hours as needed -consult heme/oncology, patient reports port recently inserted with expectancy of treatment initiation -palliative consult for goals of care concerns Dispo: Full admit to med/surg DVt Proph: Lovenox 40mg SQ Q24H CODE STATUS: DNR/DNI Patient contact: Close friend, Sky-->Phone number: [phone] Admission and Anticipated Discharge Date Admission Date: July 08, 2025 Subjective Patient reports no new symptoms. He is passing gas but has not passed BM Physical Exam Physical Exam: GENERAL APPEARANCE: A&O. Lying in bed. SKIN: Normal color without rashes or lesions. Normal turgor. HEENT: Head AT/NC. Buccal mucosa is moist and pink. NECK: No jugular venous distention. No thyroid enlargement. HEART: RRR without m/g/r. LUNGS: Normal inspiratory effort. CTA without w/r/r. ABDOMEN: No guarding or rigidity. Hypoactive BS. Abdomen minimally distended. mild tenderness on palpation. MSK: No bony gross/deformities throughout. ROM intact. EXTREMITIES: No edema, No peripheral cyanosis. Neuro: CN 2-12 grossly intact. No focal neuro deficits PSYCHIATRIC: Normal affect. Tearful at times in conversation. Results & Data Results & Data Vital Signs (Past 12 Hours) Vital Signs Temp Pulse Resp BP Pulse Ox O2 Del Method 07/09/25 14:59 36.4 C L 64 17 120/68 97 Room Air PG Care Time/CCT Total # of Minutes Spent Total Time Spent with Patient: Total time spent is greater than 50% in coordination of care (as documented) at patient's floor/unit and/or counseling patient: Coding Level of Care Code 53383 SUB INP/OBS CARE 2/35MIN Diagnoses Ileus K56.7 Constipation K59.00 Metastases to the liver C78.7 Retroperitoneal lymphadenopathy R59.0 Mediastinal adenopathy R59.[address] nodules on [address] R91.8 Cancer related pain G89.3 Leukocytosis D72.829 Acute urinary retention R33.8
[2025-07-10 06:22] LABS: Hematocrit (blood only) 27.3 % (42.0-52.0); Hemoglobin 8.4 g/dL (14.0-18.0); Mean Corpuscular Hemoglobin 22.6 pg (25.0-34.0); Mean Corpuscular Volume 73.6 fL (80.0-100.0); Platelet Count 410 K/uL (130-400); RDW Standard Deviation 54.3 fL (36.4-46.3); Red Blood Count 3.71 M/uL (4.70-6.10); White Blood Count 12.68 K/ul (4.8-10.8)
[2025-07-10 07:01] LABS: Anion Gap 8.0 (3-11); Blood Urea Nitrogen 7.0 mg/dl (6-23); Calcium 8.3 mg/dl (8.6-10.3); Carbon Dioxide 25.0 mmol/L (21-32); Chloride 108.0 mmol/L (98-107); Creatinine Clr Calc Pharmacy 110.9 ml/min; Glucose 73.0 mg/dl (70-99(Fasting)); Potassium 4.0 mmol/L (3.5-5.1); Sodium 141.0 mmol/L (136-145)
--- NOTE | 2025-07-10 09:37 | Palliative Care Progress Note ---
Date of Service July 10, 2025 Assessment & Plan (1) Constipation: Plan: Discussed and reinforced prior discussions of need for aggressive prophylactic bowel regime while taking opiate medications. Pt verbalized understanding of need for stool softener and MOM for prevention/treatment of constipation as long as he is taking opiates. (2) Palliative care by specialist: Plan: Met with patient and his friend Sky at bedside. Pt is known to Palliative Care team through outpt clinic and will continue to follow with Dr Rubi on discharge. (3) Cancer related pain: Plan: Pt states pain has been well managed with current regime of oxyIR 7.5mg q4h PRN. He shared fear that he was taking too much and caused constipation,reinforced OIC preventative teaching as above. Pt states he was taking oxy only 2 or 3 times per day and this was controlling his pain well. No recommended changes in pain mgmt regime today. (4) Abdominal pain: (5) Counseling regarding advanced directives and goals of care: Plan: Met with pt at bedside for 30 minutes, discussed pt's values and GOC. Pt shared tearful that he is very afraid of dying. He shared that his "thoughts of not living to see another year have been tearing me up inside". He shared concern that he does not know what type of cancer he has and that he has been told that he has stage IV cancer but not the type of if it can be treated. He asked if it is possible for him to live a normal life again. He shared that he is awaiting treatment options from his oncologist and that he had an appointment scheduled for today to discuss treatment. He stated that his biggest wish is that his cancer can be treated and he will feel better and live longer. He shared that he does have a living will and reinforced desire for DNR/DNI, but clarified that he does wish for all other life prolonging therapies and cancer directed treatments to continue. He shared that he has rought in his living will previously, but it is not readily available in EMR. I requested that he supply hospital with a copy when convenient. Pt verbalized that he trusts his friend Sky Miranda ([phone])to serve as as primary proxy for medical decisions in the event he lacks decisional capacity. Pt currently does not require a proxy for medical decisions. Pt currently has clearly established GOC for DNR/DNI but continue all other life prolonging therapies. He remains hopeful for a favorable pathology result and potential curative treatments. Plan as above Admission and Anticipated Discharge Date Admission Date: July 08, 2025 Subjective Pt seen at bedside, no visitors present. Pt states that his pain is currently well managed and he is moving his bowels without difficulty. SVETA GIVENS. Review of Systems Review of Systems: All systems reviewed & are unremarkable except as noted in Subjective Physical Exam Constitutional: WD/WN, vitals as above Eyes: PERRL, conjunctivae normal, anicteric sclerae ENMT: external ear and nose normal, oropharynx normal Neck: trachea midline, no thyromegaly Respiratory: normal respiratory effort, lungs clear to auscultation Cardiovascular: RRR, no murmur, no edema Gastrointestinal (Abdomen): Inspection/Auscultation: + abdomen distended and + hyperactive bowel sounds Percussion/Palpation: + abdomen tender and abdomen soft Musculoskeletal: no cyanosis or clubbing, extremities motor strength 5/5 Skin: no rashes, warm and dry Neurologic: PERRL, EOMI, accommodation nl, no face palsy, no dysarthria Psychiatric: A+Ox3, euthymic affect Results & Data Vital Signs (Past 12 Hours) Vital Signs Temp Pulse Resp BP Pulse Ox O2 Del Method 07/10/25 07:34 36.7 C 71 16 117/70 97 Room Air 07/09/25 23:44 36.8 C 64 18 123/69 98 Room Air Laboratory Results Abnormal lab results 07/10/25 Range/Units 05:43 WBC 12.68 H (4.8-10.8) K/ul RBC 3.71 L (4.70-6.10) M/uL Hgb 8.4 L (14.0-18.0) g/dL Hct 27.3 L (42.0-52.0) % MCV 73.6 L (80.0-100.0) fL MCH 22.6 L (25.0-34.0) pg MCHC 30.8 L (32.0-36.0) g/dL RDW Std Deviation 54.3 H (36.4-46.3) fL RDW Coeff of Anibal 20.4 H (11.5-14.5) % Plt Count 410 H (130-400) K/uL MPV 9.0 L (9.4-12.4) fL Chloride 108 H (98-107) mmol/L BUN/Creatinine Ratio 9.6 L (10-20) Calcium 8.3 L (8.6-10.3) mg/dl Diagnostic Findings Chest/Abdomen X-ray 07/08/25 11:41 EXAM: Radiograph of the Abdomen 2 Views and Radiographs of the Chest 1 View INDICATION: Constipation. Unable to urinate. TECHNIQUE: Frontal view of the chest, frontal view of the abdomen/pelvis and upright or decubitus view of the abdomen. COMPARISON: 05/09/2025 CT FINDINGS: Limitations: None. Lungs and pleural spaces: There is linear atelectasis in the lung bases. No pulmonary edema or pleural effusion. No pneumothorax. Heart: No abnormality noted. Mediastinum: Normal contour. Intraperitoneal space: No free air. Gastrointestinal tract: Air-fluid levels noted in small and large bowel loops particularly in the upper abdomen. Typical amounts of stool present. The amount of stool was decreased compared to the prior CT. Organs: Visualized organ shadows appear grossly normal. Bones/joints: Grossly intact lower anterior cervical fusion hardware. No acute osseous abnormality. Tubes, lines and devices: Right internal jugular central venous port tip distal SVC. IMPRESSION: 1. Ileus. Small amounts of colonic stool. 2. Coarse atelectasis left base. ACT 112: N/A Electronically signed by Catherine Hernandez 07-08-2025 2:35 PM Abdomen/Pelvis CT 07/08/25 12:46 EXAM: CT Abdomen and Pelvis With Intravenous Contrast INDICATION: Abdominal pain and constipation. Metastatic cancer. TECHNIQUE: Axial computed tomography images of the abdomen and pelvis with intravenous contrast. Sagittal and coronal reformatted images were created and reviewed. This CT exam was performed using one or more of the following dose reduction techniques: automated exposure control, adjustment of the mA and/or kV according to patient size, and/or use of iterative reconstruction technique. CONTRAST: 94 ml of Optiray 320 was administered intravenously. COMPARISON: No relevant prior studies available. FINDINGS: Limitations: None. Lung bases: Noncalcified nodules now present in the right lower lobe measuring up to 1.5 cm. Linear atelectasis noted in both lung bases. No basilar pleural effusion. Heart: No abnormality noted. Mediastinum: No abnormality noted. ABDOMEN: Liver: Extensive metastatic lesions throughout the liver grossly unchanged. No ductal dilatation. Gallbladder and bile ducts: No calcified stones or surrounding fluid. No ductal dilation. Pancreas: Homogeneous enhancement. No mass, inflammation or ductal dilation. Spleen: No acute abnormality noted. Adrenals: No acute abnormality noted. Kidneys and ureters: Normal enhancement. No mass, hydronephrosis or visualized stone. Stomach and bowel: There is fluid throughout the small and large bowel. Cannot exclude serosal implant related to bowel loops in the left upper quadrant. PELVIS: Appendix: No findings to suggest acute appendicitis. Bladder: Catheter balloon inflated in the bladder lumen. No stones. Reproductive: No abnormalities noted. ABDOMEN and PELVIS: Intraperitoneal space: No free air. No significant fluid collection. Bones/joints: Stable sclerotic changes in L3 and L4 presumably metastatic. There is a new lytic lesion in the T10 vertebral body with minimal anterior wedging. Soft tissues: There is a left paramedian umbilical hernia with fat. Vasculature: No abdominal aortic aneurysm. Lymph nodes: Stable periportal, anterior cardiophrenic and retroperitoneal adenopathy. IMPRESSION: 1. Ileus. 2. I cannot exclude metastatic serosal implants along bowel loops in the left upper quadrant. 3. New metastatic destructive lesion T10. 4. New metastatic nodules right lower lobe. 5. Stable adenopathy. ACT 112: N/A Electronically signed by Catherine Hernandez 07-08-2025 3:12 PM Medications Administered Current Inpatient Medications Acetaminophen (Acetaminophen 325 Mg Tab) 650 mg PO Q4H PRN PRN Reason: pain/fever Stop: 08/07/25 18:29 Last Admin: 07/09/25 16:18 Dose: 650 mg Al Hydrox/Mg Hydrox/Simethicone (Aluminum/Magnesium Susp 30 Ml Udc) 30 ml PO Q6H PRN PRN Reason: Dyspepsia Stop: 08/07/25 18:29 Enoxaparin Sodium (Enoxaparin Inj 40 Mg/0.4 Ml Syr) 40 mg SQ Q24H ALEENA Stop: 08/07/25 19:59 Last Admin: 07/09/25 20:19 Dose: 40 mg Sodium Chloride (Nss) 1,000 mls @ 60 mls/hr IV .[id number] ALEENA Stop: 07/11/25 18:29 Last Admin: 07/10/25 14:37 Dose: 60 mls/hr Piperacillin Sod/Tazobactam Sod (Zosyn) 4.5 gm in 100 mls @ 25 mls/hr IV Q8H [facility]; Protocol Stop: 07/10/25 20:59 Last Admin: 07/10/25 14:37 Dose: 25 mls/hr Magnesium Hydroxide (Magnesium Hydroxide Susp 30 Ml Udc) 30 ml PO Q6H PRN PRN Reason: Constipation Stop: 08/07/25 18:29 Last Admin: 07/09/25 16:18 Dose: 30 ml Melatonin (Melatonin 3 Mg Tab) 3 mg PO HS PRN PRN Reason: Insomnia Stop: 08/07/25 18:29 Metoprolol Succinate (Metoprolol Succ 25mg Ext Rel Tab) 25 mg PO QAM ALEENA Stop: 08/08/25 08:59 Last Admin: 07/10/25 11:17 Dose: 25 mg Morphine Sulfate (Morphine Sulfate 2 Mg/Ml Carp) 2 mg IV Q4H PRN PRN Reason: Pain Stop: 07/22/25 19:38 Last Admin: 07/10/25 01:05 Dose: 2 mg Naloxone HCl (Naloxone Hcl 0.4 Mg/1 Ml Vial/Carp) 0.4 mg IV Q5M PRN PRN Reason: Narcosis Stop: 08/07/25 19:38 Ondansetron HCl (Ondansetron Inj 2 Mg/Ml 2 Ml Vial) 4 mg IV Q6H PRN PRN Reason: Nausea Stop: 08/07/25 18:29 Oxycodone HCl (Oxycodone Hcl Ir 5 Mg Tab (Immediate Release)) 7.5 mg PO Q6H PRN PRN Reason: Pain Stop: 07/22/25 19:44 Polyethylene Glycol (Polyethylene (Miralax) 17 Gm Pack) 17 gm PO BID [facility] Stop: 08/08/25 20:59 Last Admin: 07/10/25 11:18 Dose: 17 gm PG Care Time/CCT Total # of Minutes Spent Total Time Spent with Patient: Total time spent is greater than 50% in coordination of care (as documented) at patient's floor/unit and/or counseling patient: Advanced Care Planning 86135 Advanced Care Planning 30 Min [place] [address] SUB INP/OBS CARE 2/35MIN Patient Type Established Medical Decision Making Moderate Complexity Diagnoses Constipation K59.00 Palliative care by specialist Z51.5 Cancer related pain G89.3 Abdominal pain R10.9 Counseling regarding advanced directives and goals of care Z71.89 Additional Codes Advanced Care Planning - 22755 Advanced Care Planning 30 Min: 45259 Advanced Care Planning 30 Min ([id number])
--- NOTE | 2025-07-10 22:27 | Hospitalist Progress Note ---
Date of Service July 10, 2025 Assessment & Plan (1) Ileus: (2) Constipation: (3) Metastases to the liver: (4) Retroperitoneal lymphadenopathy: (5) Mediastinal adenopathy: (6) Multiple lung nodules on CT: (7) Cancer related pain: (8) Leukocytosis: (9) Acute urinary retention: Plan Mr. Shearer is a 64-year-old male patient with past medical history significant for new metastatic malignancy, questionable carcinoma versus lymphoma, cancer of unknown primary, lymphadenopathy, liver lesions, abnormal PET CT scan, abnormal ECG during exercise stress test, and former tobacco chewer. He presented to [facility] emergency department 07/08 with c/o constipation and urinary retention. In the emergency department CTAP revealed ileus, possible metastatic serosal implants along bowel loops in the LUQ, new metastatic destructive lesion T10, new metastatic nodules right lower lobe. CXR with ileus, small amounts of colonic stool. Labs with WBCs 22.79 and neutrophil predominance, lactate 2.4/2.1, PT 13.2, PTT 33, Na 133, Cr 0.73, Alk phos 562, Procal 0.56, UA with no signs of infectious etiology. Received empiric Zosyn 4.5gm X 1. Posadas placed in ED d/t urinary retention with bladder scan of 670ml. ##Ileus/urinary retention/constipation -On clears sips with medication -NSS at 60ml/hr -Posadas inserted in ED, keep placed for decompression -scheduled Miralax will transition to BID -Zofran as needed -Awaiting input from Oncology, however Biopsy is pending. ##Leukocytosis noted transient tachycardia in emergency department with one isolated documented HR at 111, no SIRS/sepsis as he was not hypotensive, febrile or tachypneic -WBCs 22.79 without overt clinical signs of infection -downtrending to 12. -procal 0.56, trend -CRP elevaed continues to have zosyn. -BC X 2 pending -UA without signs of infection, UC pending -CXR without infection -Lactate 2.4-->2 liters NSS-->2.1, 0.6 -cont empiric Zosyn ##Undetermined malignancy/liver lesions/lymph node involvement/bone involvement PET/CT on 05/16/2025 findings consistent with extensive neoplastic process which favors metastatic disease, liver lesion core biopsy pending expert consultation, CT abdomen pelvis with IV contrast 07/08/2025 with new metastatic destructive lesion at T10, new metastatic nodules right lower lobe, alk phos 562 -pain management with morphine 2 mg IV every 4 hours as needed, oxycodone immediate release 5 mg every 6 hours as needed -consult heme/oncology, patient reports port recently inserted with expectancy of treatment initiation -palliative consult for goals of care concerns: appreciate input Dispo: Full admit to med/surg DVt Proph: Lovenox 40mg SQ Q24H CODE STATUS: DNR/DNI Patient contact: Close friend, Sky-->Phone number: [phone] Admission and Anticipated Discharge Date Admission Date: July 08, 2025 Subjective Patient reports that he had a small BM today. Still feels bloated. Patient is awaiting input from Hematology/Oncology. Physical Exam Physical Exam: GENERAL APPEARANCE: A&O. Lying in bed. SKIN: Normal color without rashes or lesions. Normal turgor. HEENT: Head AT/NC. Buccal mucosa is moist and pink. NECK: No jugular venous distention. No thyroid enlargement. HEART: RRR without m/g/r. LUNGS: Normal inspiratory effort. CTA without w/r/r. ABDOMEN: No guarding or rigidity. Hypoactive BS. Abdomen distended. mild tenderness on palpation. MSK: No bony gross/deformities throughout. ROM intact. EXTREMITIES: No edema, No peripheral cyanosis. Neuro: CN 2-12 grossly intact. No focal neuro deficits PSYCHIATRIC: Normal affect. Tearful at times in conversation. Results & Data Results & Data Vital Signs (Past 12 Hours) Vital Signs Temp Pulse Resp BP Pulse Ox O2 Del Method 07/10/25 15:05 36.7 C 66 16 109/67 96 Room Air PG Care Time/CCT Total # of Minutes Spent Total Time Spent with Patient: Total time spent is greater than 50% in coordination of care (as documented) at patient's floor/unit and/or counseling patient: Coding Level of Care Code 02860 SUB INP/OBS CARE 3/50MIN Diagnoses Ileus K56.7 Constipation K59.00 Metastases to the liver C78.7 Retroperitoneal lymphadenopathy R59.0 Mediastinal adenopathy R59.[address] nodules on CT R91.8 Cancer related pain G89.3 Leukocytosis D72.829 Acute urinary retention R33.8
[2025-07-11 06:32] LABS: Hematocrit (blood only) 31.2 % (42.0-52.0); Hemoglobin 9.5 g/dL (14.0-18.0); Mean Corpuscular Hemoglobin 22.2 pg (25.0-34.0); Mean Corpuscular Volume 72.9 fL (80.0-100.0); Platelet Count 505 K/uL (130-400); RDW Standard Deviation 53.1 fL (36.4-46.3); Red Blood Count 4.28 M/uL (4.70-6.10); White Blood Count 15.61 K/ul (4.8-10.8)
[2025-07-11 06:57] LABS: Anion Gap 9.0 (3-11); Blood Urea Nitrogen 5.0 mg/dl (6-23); Calcium 8.7 mg/dl (8.6-10.3); Carbon Dioxide 25.0 mmol/L (21-32); Chloride 106.0 mmol/L (98-107); Creatinine Clr Calc Pharmacy 124.6 ml/min; Glucose 92.0 mg/dl (70-99(Fasting)); Potassium 3.5 mmol/L (3.5-5.1); Sodium 140.0 mmol/L (136-145)
--- NOTE | 2025-07-11 08:12 | Hospitalist Progress Note ---
Date of Service July 11, 2025 Assessment & Plan (1) Ileus: (2) Constipation: (3) Metastases to the liver: (4) Retroperitoneal lymphadenopathy: (5) Mediastinal adenopathy: (6) Multiple lung nodules on CT: (7) Cancer related pain: (8) Leukocytosis: (9) Acute urinary retention: Plan Mr. Shearer is a 64-year-old male patient with past medical history significant for new metastatic malignancy, questionable carcinoma versus lymphoma, cancer of unknown primary, lymphadenopathy, liver lesions, abnormal PET CT scan, abnormal ECG during exercise stress test, and former tobacco chewer. He presented to [facility] emergency department 07/08 with c/o opiate relagted constipation and urinary retention. In the emergency department CTAP revealed ileus, possible metastatic serosal implants along bowel loops in the LUQ, new metastatic destructive lesion T10, new metastatic nodules right lower lobe. CXR with ileus, small amounts of colonic stool. Received empiric Zosyn 4.5gm X 1. Posadas placed in ED d/t urinary retention with bladder scan of 670ml. ##Ileus/urinary retention/constipation -improved having bowel movements, bowel regimen with senna and miralax, consider relistor -Posadas inserted in ED, this point of irritation to patient, will have voiding trial once somatic symptoms are improved, 07/11 still with pain -Awaiting input from Oncology, however cannot comment on treatment as Biopsy is pending. ##Leukocytosis -procal 0.56, -CRP elevated,but has cancer, continues to have zosyn. -BC X 2 negative -UA without signs of infection, UC negative -CXR without infection - empiric Zosyn ##Undetermined malignancy/liver lesions/lymph node involvement/bone involvement PET/CT on 05/16/2025 findings consistent with extensive neoplastic process which favors metastatic disease, liver lesion core biopsy pending expert consultation, CT abdomen pelvis with IV contrast 07/08/2025 with new metastatic destructive lesion at T10, new metastatic nodules right lower lobe, alk phos 562 -pain management with morphine 2 mg IV every 4 hours as needed, oxycodone immediate release 5 mg every 6 hours as needed -consult heme/oncology, patient reports port recently inserted with expectancy of treatment initiation -palliative consult for goals of care concerns: appreciate input if symptoms are controlled and pt awaiting path results may go home pt has situational depression, start low dose remeron in hopes of also helping appetite Dispo: Full admit to med/surg DVt Proph: Lovenox 40mg SQ Q24H CODE STATUS: DNR/DNI complex care coordination cancer related pain control, situational depression, called pathology to check on pending path, bowel regimen adjustment Patient contact: Close friend, Sky-->Phone number: [phone], undated 07/11/25 Admission and Anticipated Discharge Date Admission Date: July 08, 2025 Subjective pt is a bit depressed, frustrated that we do not have results from pathology, I explained its sent out to [facility] spoke to family, will attempt to get home while we await results Results & Data Results & Data Vital Signs (Past 12 Hours) Vital Signs Temp Pulse Resp BP Pulse Ox O2 Del Method 07/11/25 07:37 97.7 F 65 16 104/66 96 Room Air 07/10/25 22:45 97.9 F 69 18 114/67 97 Room Air Laboratory Results review cbc-mild leukocytosis review chemistry PG Care Time/CCT Total # of Minutes Spent Total Time Spent with Patient: Total time spent is greater than 50% in coordination of care (as documented) at patient's floor/unit and/or counseling patient: Coding Level of Care Code 83060 SUB INP/OBS CARE 3/50MIN Diagnoses Ileus K56.7 Constipation K59.00 Metastases to the liver C78.7 Retroperitoneal lymphadenopathy R59.0 Mediastinal adenopathy R59.[address] nodules on [address] R91.8 Cancer related pain G89.3 Leukocytosis D72.829 Acute urinary retention R33.8
--- NOTE | 2025-07-11 10:04 | Palliative Care Progress Note ---
Date of Service July 11, 2025 Assessment & Plan (1) Constipation: Plan: Discussed and reinforced prior discussions of need for aggressive prophylactic bowel regime while taking opiate medications. Pt verbalized understanding of need for stool softener and MOM for prevention/treatment of constipation as long as he is taking opiates. (2) Palliative care by specialist: Plan: Pt is known to Palliative Care team through outpt clinic and will continue to follow with Dr Rubi for symptom mgmt and ACP on discharge. (3) Cancer related pain: Plan: Pt states pain has been well managed with current regime of oxyIR 7.5mg q4h PRN. He shared fear that he was taking too much and caused constipation,reinforced OIC preventative teaching as above. Pt states he was taking oxy only 2 or 3 times per day and this was controlling his pain well. No recommended changes in pain mgmt regime. (4) Abdominal pain: (5) Counseling regarding advanced directives and goals of care: Plan: today: Met with pt at bedside, he again shared concern with not having biopsy results or treatment plan established. Reinforced need for pathology results to guide treatment and that Dr Hernandez could discuss all options and prognosis with him once pathology is known. He shared that he believes he has lymphoma and questioned why we cannot just start him on treatment for lymphoma. Reinforced previous discussion that different forms of cancer respond differently to the same treatment and best outcome will be ensured by aligning his treatment plan with his biopsy results. He is very overwhelmed, tearful, and acknowledges that he is worried that he will soon. Compassion and empathy provided. Pastoral care offered and he welcomes visit. 07/10: Met with pt at bedside for 30 minutes, discussed pt's values and GOC. Pt shared tearful that he is very afraid of dying. He shared that his "thoughts of not living to see another year have been tearing me up inside". He shared concern that he does not know what type of cancer he has and that he has been told that he has stage IV cancer but not the type of if it can be treated. He asked if it is possible for him to live a normal life again. He shared that he is awaiting treatment options from his oncologist and that he had an appointment scheduled for today to discuss treatment. He stated that his biggest wish is that his cancer can be treated and he will feel better and live longer. He shared that he does have a living will and reinforced desire for DNR/DNI, but clarified that he does wish for all other life prolonging therapies and cancer directed treatments to continue. He shared that he has rought in his living will previously, but it is not readily available in EMR. I requested that he supply hospital with a copy when convenient. Pt verbalized that he trusts his friend Sky Miranda ([phone])to serve as as primary proxy for medical decisions in the event he lacks decisional capacity. Pt currently does not require a proxy for medical decisions. Pt currently has clearly established GOC for DNR/DNI but continue all other life prolonging therapies. He remains hopeful for a favorable pathology result and potential curative treatments. Plan as above Admission and Anticipated Discharge Date Admission Date: July 08, 2025 Subjective Assessed pt at bedside, no visitors present. Patient more alert today, pleasantly communicative and oriented x4. SVETA GIVENS. Review of Systems Review of Systems: All systems reviewed & are unremarkable except as noted in Subjective Physical Exam Constitutional: WD/WN, vitals as above Eyes: PERRL, conjunctivae normal, anicteric sclerae ENMT: external ear and nose normal, oropharynx normal Neck: trachea midline, no thyromegaly Respiratory: normal respiratory effort, lungs clear to auscultation Cardiovascular: RRR, no murmur, no edema Gastrointestinal (Abdomen): Inspection/Auscultation: + abdomen distended and + hyperactive bowel sounds Percussion/Palpation: + abdomen tender and abdomen soft Musculoskeletal: no cyanosis or clubbing, extremities motor strength 5/5 Skin: no rashes, warm and dry Neurologic: PERRL, EOMI, accommodation nl, no face palsy, no dysarthria Psychiatric: A+Ox3, euthymic affect Results & Data Vital Signs (Past 12 Hours) Vital Signs Temp Pulse Resp BP Pulse Ox O2 Del Method 07/11/25 07:37 36.5 C 65 16 104/66 96 Room Air 07/10/25 22:45 36.6 C 69 18 114/67 97 Room Air Laboratory Results Abnormal lab results 07/11/25 Range/Units 05:53 WBC 15.61 H (4.8-10.8) K/ul RBC 4.28 L (4.70-6.10) M/uL Hgb 9.5 L (14.0-18.0) g/dL Hct 31.2 L (42.0-52.0) % MCV 72.9 L (80.0-100.0) fL MCH 22.2 L (25.0-34.0) pg MCHC 30.4 L (32.0-36.0) g/dL RDW Std Deviation 53.1 H (36.4-46.3) fL RDW Coeff of Anibal 20.3 H (11.5-14.5) % Plt Count 505 H (130-400) K/uL MPV 8.9 L (9.4-12.4) fL BUN 5 L (6-23) mg/dl BUN/Creatinine Ratio 7.7 L (10-20) Diagnostic Findings Chest/Abdomen X-ray 07/08/25 11:41 EXAM: Radiograph of the Abdomen 2 Views and Radiographs of the Chest 1 View INDICATION: Constipation. Unable to urinate. TECHNIQUE: Frontal view of the chest, frontal view of the abdomen/pelvis and upright or decubitus view of the abdomen. COMPARISON: 05/09/2025 CT FINDINGS: Limitations: None. Lungs and pleural spaces: There is linear atelectasis in the lung bases. No pulmonary edema or pleural effusion. No pneumothorax. Heart: No abnormality noted. Mediastinum: Normal contour. Intraperitoneal space: No free air. Gastrointestinal tract: Air-fluid levels noted in small and large bowel loops particularly in the upper abdomen. Typical amounts of stool present. The amount of stool was decreased compared to the prior CT. Organs: Visualized organ shadows appear grossly normal. Bones/joints: Grossly intact lower anterior cervical fusion hardware. No acute osseous abnormality. Tubes, lines and devices: Right internal jugular central venous port tip distal SVC. IMPRESSION: 1. Ileus. Small amounts of colonic stool. 2. Coarse atelectasis left base. ACT 112: N/A Electronically signed by Catherine Hernandez 07-08-2025 2:35 PM Abdomen/Pelvis CT 07/08/25 12:46 EXAM: CT Abdomen and Pelvis With Intravenous Contrast INDICATION: Abdominal pain and constipation. Metastatic cancer. TECHNIQUE: Axial computed tomography images of the abdomen and pelvis with intravenous contrast. Sagittal and coronal reformatted images were created and reviewed. This CT exam was performed using one or more of the following dose reduction techniques: automated exposure control, adjustment of the mA and/or kV according to patient size, and/or use of iterative reconstruction technique. CONTRAST: 94 ml of Optiray 320 was administered intravenously. COMPARISON: No relevant prior studies available. FINDINGS: Limitations: None. Lung bases: Noncalcified nodules now present in the right lower lobe measuring up to 1.5 cm. Linear atelectasis noted in both lung bases. No basilar pleural effusion. Heart: No abnormality noted. Mediastinum: No abnormality noted. ABDOMEN: Liver: Extensive metastatic lesions throughout the liver grossly unchanged. No ductal dilatation. Gallbladder and bile ducts: No calcified stones or surrounding fluid. No ductal dilation. Pancreas: Homogeneous enhancement. No mass, inflammation or ductal dilation. Spleen: No acute abnormality noted. Adrenals: No acute abnormality noted. Kidneys and ureters: Normal enhancement. No mass, hydronephrosis or visualized stone. Stomach and bowel: There is fluid throughout the small and large bowel. Cannot exclude serosal implant related to bowel loops in the left upper quadrant. PELVIS: Appendix: No findings to suggest acute appendicitis. Bladder: Catheter balloon inflated in the bladder lumen. No stones. Reproductive: No abnormalities noted. ABDOMEN and PELVIS: Intraperitoneal space: No free air. No significant fluid collection. Bones/joints: Stable sclerotic changes in L3 and L4 presumably metastatic. There is a new lytic lesion in the T10 vertebral body with minimal anterior wedging. Soft tissues: There is a left paramedian umbilical hernia with fat. Vasculature: No abdominal aortic aneurysm. Lymph nodes: Stable periportal, anterior cardiophrenic and retroperitoneal adenopathy. IMPRESSION: 1. Ileus. 2. I cannot exclude metastatic serosal implants along bowel loops in the left upper quadrant. 3. New metastatic destructive lesion T10. 4. New metastatic nodules right lower lobe. 5. Stable adenopathy. ACT 112: N/A Electronically signed by Catherine Hernandez 07-08-2025 3:12 PM Medications Administered Current Inpatient Medications Acetaminophen (Acetaminophen 325 Mg Tab) 650 mg PO Q4H PRN PRN Reason: pain/fever Stop: 08/07/25 18:29 Last Admin: 07/10/25 21:14 Dose: 650 mg Al Hydrox/Mg Hydrox/Simethicone (Aluminum/Magnesium Susp 30 Ml Udc) 30 ml PO Q6H PRN PRN Reason: Dyspepsia Stop: 08/07/25 18:29 Enoxaparin Sodium (Enoxaparin Inj 40 Mg/0.4 Ml Syr) 40 mg SQ Q24H ALEENA Stop: 08/07/25 19:59 Last Admin: 07/10/25 21:09 Dose: 40 mg Sodium Chloride (Nss) 1,000 mls @ 60 mls/hr IV .[id number] ALEENA Stop: 07/11/25 18:29 Last Admin: 07/11/25 06:07 Dose: 60 mls/hr Magnesium Hydroxide (Magnesium Hydroxide Susp 30 Ml Udc) 30 ml PO Q6H PRN PRN Reason: Constipation Stop: 08/07/25 18:29 Last Admin: 07/09/25 16:18 Dose: 30 ml Melatonin (Melatonin 3 Mg Tab) 3 mg PO HS PRN PRN Reason: Insomnia Stop: 08/07/25 18:29 Metoprolol Succinate (Metoprolol Succ 25mg Ext Rel Tab) 25 mg PO QAM ALEENA Stop: 08/08/25 08:59 Last Admin: 07/11/25 09:07 Dose: 25 mg Morphine Sulfate (Morphine Sulfate 2 Mg/Ml Carp) 2 mg IV Q4H PRN PRN Reason: Pain Stop: 07/22/25 19:38 Last Admin: 07/10/25 01:05 Dose: 2 mg Naloxone HCl (Naloxone Hcl 0.4 Mg/1 Ml Vial/Carp) 0.4 mg IV Q5M PRN PRN Reason: Narcosis Stop: 08/07/25 19:38 Ondansetron HCl (Ondansetron Inj 2 Mg/Ml 2 Ml Vial) 4 mg IV Q6H PRN PRN Reason: Nausea Stop: 08/07/25 18:29 Oxycodone HCl (Oxycodone Hcl Ir 5 Mg Tab (Immediate Release)) 7.5 mg PO Q6H PRN PRN Reason: Pain Stop: 07/22/25 19:44 Last Admin: 07/11/25 14:12 Dose: 7.5 mg Polyethylene Glycol (Polyethylene (Miralax) 17 Gm Pack) 17 gm PO BID ALEENA Stop: 08/08/25 20:59 Last Admin: 07/11/25 09:07 Dose: 17 gm PG Care Time/CCT Total # of Minutes Spent Total Time Spent with Patient: Total time spent is greater than 50% in coordination of care (as documented) at patient's floor/unit and/or counseling patient: Coding [place] [address] SUB INP/OBS CARE 350MIN Patient Type Established Medical Decision Making Moderate Complexity Diagnoses Constipation K59.00 Palliative care by specialist Z51.5 Cancer related pain G89.3 Abdominal pain R10.9 Counseling regarding advanced directives and goals of care Z71.89
[2025-07-11] MEDS: MIRTAZAPINE TAB 15 MG TAB PO SCH (21:00)
[2025-07-12] MEDS: SENNA 8.6 MG TAB PO SCH (08:55)
--- NOTE | 2025-07-12 18:49 | Discharge Summary ---
Discharge Summary Date of Service July 12, 2025 Principal Dx & Hospital Course #1 = Principal Diagnosis (1) Cancer related pain: Plan (1) Ileus: (2) Constipation: (3) Metastases to the liver: (4) Retroperitoneal lymphadenopathy: (5) Mediastinal adenopathy: (6) Multiple lung nodules on CT: (7) Cancer related pain: (8) Leukocytosis: (9) Acute urinary retention: Plan Mr. Shearer is a 64-year-old male patient with past medical history significant for new metastatic malignancy, questionable carcinoma versus lymphoma, cancer of unknown primary, lymphadenopathy, liver lesions, abnormal PET CT scan, abnormal ECG during exercise stress test, and former tobacco chewer. He presented to [facility] emergency department 07/08 with c/o opiate relagted constipation and urinary retention. In the emergency department CTAP revealed ileus, possible metastatic serosal implants along bowel loops in the LUQ, new metastatic destructive lesion T10, new metastatic nodules right lower lobe. CXR with ileus, small amounts of colonic stool. Received empiric Zosyn 4.5gm X 1. Posadas placed in ED d/t urinary retention removed 07/12 with ability to void ##Ileus/urinary retention/constipation resolved with improved bowel regimen and education ##Leukocytosis -procal 0.56, -CRP elevated,but has cancer, continues to have zosyn. -BC X 2 negative -UA without signs of infection, UC negative -CXR without infection infection ruled out ##Undetermined malignancy/liver lesions/lymph node involvement/bone involvement PET/CT on 05/16/2025 findings consistent with extensive neoplastic process which favors metastatic disease, liver lesion core biopsy pending expert consultation, CT abdomen pelvis with IV contrast 07/08/2025 with new metastatic destructive lesion at T10, new metastatic nodules right lower lobe, alk phos 562 -pain management with morphine 2 mg IV every 4 hours as needed, oxycodone immediate release 5 mg every 6 hours as needed -consult heme/oncology, Oncology, however cannot comment on treatment as Biopsy is pending. -palliative consult for goals of care concerns pt has situational depression, start low dose remeron in hopes of also helping appetite Admission HPI Per Admitting Provider Mr. Shearer is a 64-year-old male patient with past medical history significant for new metastatic malignancy, questionable carcinoma versus lymphoma, cancer of unknown primary, lymphadenopathy, liver lesions, abnormal PET CT scan, abnormal ECG during exercise stress test, and former tobacco chewer. Presented to the [facility] emergency department today for complaints of constipation and urinary retention. States he started on oral narcotic recently secondary to a new cancer diagnosis and has been having fleeting issues with obstipation. He has been taking laxatives at home but feels his stool is more hard than normal. He has not fully evacuated his bowels since [place]. He is taking Colace at home and milk of magnesia but has not had significant relief. He had to drink an entire bottle of magnesium citrate today and has had no favorble results. He has some vague generalized abdominal pain. He denies nausea, vomiting, fever, chills, dysuria, SOB, chest pain. He presented to the emergency department at [facility] on 04/11/2025 with complaints of exertional dyspnea and chest pain. At that time he had a chest CTA which revealed 3 pulmonary nodules measuring 13 mm, 12 mm and 7 mm resp ectively with cirrhotic morphology of the liver. He also had a stress test at that time that was nondiagnostic as he did not reach maximal heart rate. He followed up to establish care with a family medicine provider and outpatient cardiology. He was started on a beta amina and aspirin 81mg po daily. He is scheduled to have a [facility] outpatient. In the interim he has had several appointments with pulmonology, hematology/oncology, and palliative medicine. Patient seen by [facility] hematology/oncology due to liver lesions, lymphadenopathy, and abnormal PET scan with recommendations for CT- guided liver biopsy, bone marrow biopsy, and port placement with differentials including extensive neoplastic process which favors metastatic disease and possible lymphoma. Liver biopsy complete on 06/26. He denies previous or current tobacco use, former chewing tobacco and no current ETOH use. After discussion with the patient he elects to be a DNR/DNI. Discharge Plan Discharge Items Patient Disposition: Home - Self-Care Reason For Visit: COSTIPATION, METASTATI CA, ILEUS Discharge Diagnosis: cancer related pain pain medicine related constipation Condition on Discharge: Fair Activity: Resume your previous activity Non-emergency contact: Primary Care Provider and Oncologist Call non-emergency contact if: your symptoms worsen Follow-up/Referrals: Claude Hernandez MD [Physician] - Pamela Griffith DO [Primary Care Provider] - Diet: Regular Diet Comment: plenty of liquids and dietary fiber Addtl Attending Provider Instructions: for your constipation take a senna lax each am and take miralax one tblspn twice a day, if you do not have a good bowel movement double the amount of senna and miralax the following day, if you go too much do not take miralac the following day. Follow up with your primary care to keep discussing and adjusting your bowel regiment take your pain medicine carefully, but try to take pain medicines when pain is small to try to eliminate it rather than waiting until it is severe follow up with Dr Hernandez for your biopsy results Pending Studies at Discharge: No Stand-Alone Forms: My [facility] [employer], Smoking Cessation Medications and DC Order Prescriptions: New sennosides [Senna Lax] 8.6 mg Tablet 8.6 mg PO QAM Qty: 30 0RF mirtazapine 15 mg Tablet 15 mg PO HS Qty: 30 4RF polyethylene glycol 3350 17 gram/dose powder 17 g PO BID Qty: 60 0RF Continued albuterol sulfate [Ventolin HFA] 90 mcg/actuation HFA aerosol inhaler 2 puff inhalation QID PRN (Reason: Shortness Of Breath Or Wheezing) Qty: 8.5 4RF oxycodone-acetaminophen [Percocet] 7.5-325 mg tablet 1 tab PO QID PRN (Reason: severe cancer pain) 30 Days Qty: 120 0RF aspirin [Adult Low Dose Aspirin] 81 mg tablet,delayed release (DR/EC) 81 mg PO QAM metoprolol succinate 25 mg tablet extended release 24 hr 25 mg PO QAM magnesium hydroxide 800 mg/5 mL Suspension 800 mg PO DAILY PRN (Reason: Constipation) Changed acetaminophen 500 mg Tablet 500 mg PO TID PRN (Reason: Pain) Qty: 0 0RF Discharge Orders: Discharge Order (Routine); Ordered 07/12/25 Ordered By: Osorio Summers Admission Data Admit Date/Time: 07/08/25 17:01 Attending Provider: Osorio Summers Admit Provider: Calos Salas Primary Care Provider: Pamela Griffith Other Providers: Calos Salas; Claude Hernandez; Doreen Scruggs; Ellyn Rubi Other Interventions: Discharge Summary Assessment (RN) Last Done: 07/12/25 16:36 Hospital Stay Data Consultations 07/08/25 15:59 ED Decision to Admit Stat 07/08/25 20:40 Consult Palliative Care Routine 07/08/25 20:47 Consult Oncology Routine Diagnostic Imagining Performed 07/08/25 12:46 CT Abd and Pelvis [CT abd pelvis IV con only] Stat Pending Results Patient Have Any Pending Studies at Discharge: No Discharge Instructions Given to Patient (Per Discharging Provider) for your constipation take a senna lax each am and take miralax one tblspn twice a day, if you do not have a good bowel movement double the amount of senna and miralax the following day, if you go too much do not take miralac the following day. Follow up with your primary care to keep discussing and adjusting your bowel regiment take your pain medicine carefully, but try to take pain medicines when pain is small to try to eliminate it rather than waiting until it is severe follow up with Dr Hernandez for your biopsy results Total Time Total Time Spent Total Time Spent (In Minutes): I personally have spent greater than 30 minutes of time on the patient discharge today including review of tests, documentation, exam, and discussing treatment plan moving forward with the patient. Coding Level of Care Code 12373 INP/OBS DISCH >30 MIN Diagnoses Cancer related pain G89.3
== END 2025-07-12 17:07 | disposition home or self-care (01) | DRG 389 ==
LOC: ED 10:44 → 3E 17:01 → SUATTDRO 17:01 → 3E 18:08